=== PATIENT | male | born 1940 | race Caucasian/White ===

== ENCOUNTER 2018-05-26 09:49 | Emergency (ER) | payer OTHER, BC ==
--- NOTE | 2018-05-26 10:48 | RAD REPORT ---
EXAM DESCRIPTION: CT - CTHCSPWOC - 05/26/2018 10:35 am CLINICAL HISTORY: Trauma, head and neck injury. PAIN COMPARISON: No comparisons TECHNIQUE: Axial 5 mm thick images of the head were obtained. Axial 2 mm thick images of the cervical spine were obtained with sagittal and coronal reconstruction images generated and reviewed. All CT scans are performed using dose optimization technique as appropriate and may include automated exposure control or mA/KV adjustment according to patient size. FINDINGS: CT HEAD WITHOUT CONTRAST: No acute hemorrhage, hydrocephalus or extra-axial collection is identified.Moderate generalized brain atrophy is present with moderate periventricular and deep white matter chronic microvascular ischemi c changes.No areas of brain edema or midline shift. The paranasal sinuses and mastoids are clear.The calvarium is intact. CT CERVICAL SPINE WITHOUT CONTRAST: No fracture or subluxation.Mild spondylosis.No prevertebral soft tissues swelling is identified. IMPRESSION: No acute intracranial or cervical spine findings. Mild cervical spondylosis.
--- NOTE | 2018-05-26 11:35 | ER ---
Nurse's Notes [facility] Name: George Brown Age: 77 yrs Sex: Male : 1940 Arrival Date: 05/26/2018 Time: 09:54 Bed 16 Private MD: Jaden Noble Diagnosis: Acute pain due to trauma;Postconcussional syndrome Presentation: 05/26 09:57 Presenting complaint: Patient states: Patient reports that he got dizzy and fell 5 days aj ago and hit the left side of his head on wooden shower door. Denied LOC. Patient reports pain to left side of head has not subsided. Care prior to arrival: None. Mechanism of Injury: No Mechanism of Injury. Trauma event details: Injury occurred in the [facility], Injury occurred: at home. Injury occurred: May 21, 2018 Injury occurred at: 09:59. 09:57 Acuity: LEANN 3 aj 09:57 Method Of Arrival: Ambulatory aj 10:01 Transition of care: patient was not received from another setting of care. Onset of aj symptoms was May 21, 2018. Risk Assessment: Do you want to hurt yourself or someone else? Patient reports no desire to harm self or others. 12:19 Initial Sepsis Screen: Does the patient meet any 2 criteria? No. Patient's initial ph sepsis screen is negative. Does the patient have a suspected source of infection? No. Patient's initial sepsis screen is negative. Trauma Activation: Not Applicable Physician: ED Physician; Name: ; Notified At: ; Arrived At: Physician: General Surgeon; Name: ; Notified At: ; Arrived At: Physician: Radiology; Name: ; Notified At: ; Arrived At: Physician: Respiratory; Name: ; Notified At: ; Arrived At: Physician: Lab; Name: ; Notified At: ; Arrived At: Historical: - Allergies: 10:02 No Known Allergies; aj - Home Meds: 10:02 unknown HTN medication [Active]; aj - PMHx: 10:02 Hypertension; Anemia; aj - PSHx: 10:02 Hernia repair; aj - Immunization history: Last tetanus immunization: - up to date. - Social history:: Smoking status: Patient/guardian denies using tobacco. - Ebola Screening: : Patient negative for fever greater than or equal to 101.5 degrees Fahrenheit, and additional compatible Ebola Virus Disease symptoms Patient denies exposure to infectious person Patient denies travel to an Ebola-affected area in the 21 days before illness onset No symptoms or risks identified at this time. Screenin:57 Abuse screen: Denies threats or abuse. Denies injuries from another. Tuberculosis aj screening: No symptoms or risk factors identified. 10:30 Nutritional screening: No deficits noted. Fall Risk None identified. ph Primary Survey: :57 Breathing/Chest: Respiratory pattern: regular, Respiratory effort: spontaneous, aj unlabored, Breath sounds: clear, bilaterally. Chest inspection: symmetrical rise and fall of the chest. Circulation: Skin color: pink. Disability Alert. 12:00 Reassessment Breathing/Chest Respiratory pattern Regular Disability Alert. ph Assessment: 09:57 General: Appears in no apparent distress. comfortable, Behavior is calm, cooperative, aj appropriate for age. Pain: Complains of pain in left frontal area, left side of forehead, left temporal area, left latter-day, left ear and left zygomatic area. Neuro: Level of Consciousness is awake, alert, obeys commands, Oriented to person, place, time, situation, Appropriate for age Reports dizziness. Respiratory: Airway is patent Respiratory effort is even, unlabored, Respiratory pattern is regular, symmetrical. Derm: Skin is intact, is healthy with good turgor, Skin is pink, warm \T\ dry. normal. 10:30 General: Appears in no apparent distress. comfortable, well groomed, Behavior is calm, ph cooperative, appropriate for age. Pain: Complains of pain in left temporal area. Neuro: Level of Consciousness is awake, alert, obeys commands, Reports dizziness, headache in left frontal area, Denies blurred vision photophobia. Cardiovascular: Capillary refill < 3 seconds in bilateral fingers Patient's skin is warm and dry. Respiratory: Airway is patent Respiratory effort is even, unlabored. GI: Patient currently denies nausea, vomiting. Derm: Skin is intact, is healthy with good turgor, Skin is pink, warm \T\ dry. Musculoskeletal: Circulation, motion, and sensation intact. Range of motion: intact in all extremities. 11:30 Reassessment: Patient appears in no apparent distress at this time. Patient and/or ph family updated on plan of care and expected duration. Pain level reassessed. Patient is alert, oriented x 3, equal unlabored respirations, skin warm/dry/pink. Pt resting quietly, awaiting CT results. Vital Signs: 09:57 BP 152 / 92; Pulse 60; Resp 16; Temp 97.8; Pulse Ox 97% on R/A; Weight 81.65 kg; Height aj 5 ft. 9 in. (175.26 cm); 11:28 BP 141 / 73; Pulse 50; Resp 16; Pulse Ox 96% on R/A; mh5 12:13 BP 141 / 73; Pulse 52; Resp 18; Temp 98.0; Pulse Ox 97% on R/A; ph 09:57 Body Mass Index 26.58 (81.65 kg, 175.26 cm) aj [place] Coma Score: 09:57 Eye Response: spontaneous(4). Verbal Response: oriented(5). Motor Response: obeys aj commands(6). Total: 15. 12:13 Eye Response: spontaneous(4). Verbal Response: oriented(5). Motor Response: obeys ph commands(6). Total: 15. Trauma Score (Adult): 09:57 Eye Response: spontaneous(1); Verbal Response: oriented(1); Motor Response: obeys aj commands(2); Systolic BP: > 89 mm Hg(4); Respiratory Rate: 10 to 29 per min(4); Karan Score: 15; Trauma Score: 12 12:13 Eye Response: spontaneous(1); Verbal Response: oriented(1); Motor Response: obeys ph commands(2); Systolic BP: > 89 mm Hg(4); Respiratory Rate: 10 to 29 per min(4); [place] Score: 15; Trauma Score: 12 ED Course: 09:54 Patient arrived in ED. sb2 09:54 Jaden Noble MD is Private Physician. sb2 09:59 Triage completed. aj 10:02 Arm band placed on left wrist. Patient placed in an exam room. aj 10:05 Genie Butts, JOSELIN is Primary Nurse. ph 10:06 Tunde Fernandez PA is PHCP. jr8 10:06 Nathen Wright MD is Attending Physician. jr8 10:[address] mw3 10:30 Patient maintains SpO2 saturation greater than 95% on room air. ph 10:30 Thermoregulation: warm blanket given to patient. ph 10:35 CT Head C Spine In Process Unspecified. EDMS 11:32 Jaden Noble MD is Referral Physician. jr8 12:15 No provider procedures requiring assistance completed. Patient did not have IV access ph during this emergency room visit. 12:18 Patient has correct armband on for positive identification. Bed in low position. Call ph light in reach. Side rails up X 1. Pulse ox on. NIBP on. Warm blanket given. Administered Medications: 12:05 Drug: [place] (7.5 mg-325 mg) 1 tabs Route: PO; ph 12:13 Follow up: Response: No adverse reaction ph Intake: 12:13 PO: 0ml; Total: 0ml. ph Output: 12:13 Urine: 0ml; Total: 0ml. ph Outcome: 11:34 Discharge ordered by MD. jr8 12:15 Patient left the ED. ph 12:15 Discharged to home ambulatory, with significant other. ph 12:15 Condition: good 12:15 Discharge instructions given to patient, significant other, Instructed on discharge instructions, follow up and referral plans. medication usage, Demonstrated understanding of instructions, follow-up care, medications, Prescriptions given X 1. 12:15 Patient's length of stay was not longer than 2 hours. ph Signatures: Dispatcher [employer] EDWI Doris Palmer RN RN aj Roszak, Josh, PA PA jr8 Genie Butts RN RN ph Martinez, Maria 5 Geni Valiente 2 Miley Mon mw3
--- NOTE | 2018-05-26 11:35 | EDPHYS ---
Physician Documentation [facility] Name: George Brown Age: 77 yrs Sex: Male : 1940 Arrival Date: 05/26/2018 Time: 09:54 Bed 16 Private MD: Jaden Noble ED Physician Nathen Wrihgt HPI: 05/26 10:53 This 77 yrs old Male presents to ER via Ambulatory with complaints of Fall jr8 Injury - 5 DAYS AGO, Dizziness. 10:53 Details of fall: The patient fell from an upright position, while standing. Onset: The jr8 symptoms/episode began/occurred acutely, 5 day(s) ago. Associated injuries: The patient sustained injury to the head, pain. Severity of symptoms: At their worst the symptoms were mild, in the emergency department the symptoms are unchanged. The patient has not experienced similar symptoms in the past. The patient has not recently seen a physician. 10:59 Patient stated that he lost balance from being dizzy the other day. Stated that he fell jr8 and hit left forehead. Had been still having on/off pain since incident. Patient stated that he has f/u with PCP this Saturday for the dizziness to r/o B12 deficiency anemia . Historical: - Allergies: 10:02 No Known Allergies; aj - Home Meds: 10:02 unknown HTN medication [Active]; aj - PMHx: 10:02 Hypertension; Anemia; aj - PSHx: 10:02 Hernia repair; aj - Immunization history: Last tetanus immunization: - up to date. - Social history:: Smoking status: Patient/guardian denies using tobacco. - Ebola Screening: : Patient negative for fever greater than or equal to 101.5 degrees Fahrenheit, and additional compatible Ebola Virus Disease symptoms Patient denies exposure to infectious person Patient denies travel to an Ebola-affected area in the 21 days before illness onset No symptoms or risks identified at this time. ROS: 10:59 Eyes: Negative for injury, pain, redness, and discharge, ENT: Negative for injury, jr8 pain, and discharge, Neck: Negative for injury, pain, and swelling, Cardiovascular: Negative for chest pain, palpitations, and edema, Respiratory: Negative for shortness of breath, cough, wheezing, and pleuritic chest pain, Abdomen/GI: Negative for abdominal pain, nausea, vomiting, diarrhea, and constipation, Back: Negative for injury and pain, MS/Extremity: Negative for injury and deformity, Skin: Negative for injury, rash, and discoloration. 10:59 Neuro: Positive for dizziness, headache, Negative for altered mental status, gait disturbance, hearing loss, loss of consciousness, numbness, seizure activity, speech changes, syncope, near syncope, tingling, tinnitus, tremor, visual changes, weakness. Exam: 10:59 Eyes: Pupils equal round and reactive to light, extra-ocular motions intact. Lids and jr8 lashes normal. Conjunctiva and sclera are non-icteric and not injected. Cornea within normal limits. Periorbital areas with no swelling, redness, or edema. ENT: Nares patent. No nasal discharge, no septal abnormalities noted. Tympanic membranes are normal and external auditory canals are clear. Oropharynx with no redness, swelling, or masses, exudates, or evidence of obstruction, uvula midline. Mucous membranes moist. Neck: Trachea midline, no thyromegaly or masses palpated, and no cervical lymphadenopathy. Supple, full range of motion without nuchal rigidity, or vertebral point tenderness. No Meningismus. Cardiovascular: Regular rate and rhythm with a normal S1 and S2. No gallops, murmurs, or rubs. Normal PMI, no JVD. No pulse deficits. Respiratory: Lungs have equal breath sounds bilaterally, clear to auscultation and percussion. No rales, rhonchi or wheezes noted. No increased work of breathing, no retractions or nasal flaring. Abdomen/GI: Soft, non-tender, with normal bowel sounds. No distension or tympany. No guarding or rebound. No evidence of tenderness throughout. Back: No spinal tenderness. No costovertebral tenderness. Full range of motion. Skin: Warm, dry with normal turgor. Normal color with no rashes, no lesions, and no evidence of cellulitis. MS/ Extremity: Pulses equal, no cyanosis. Neurovascular intact. Full, normal range of motion. Neuro: Awake and alert, GCS 15, oriented to person, place, time, and situation. Cranial nerves II-XII grossly intact. Motor strength 5/5 in all extremities. Sensory grossly intact. Cerebellar exam normal. Normal gait. 10:59 Head/face: Noted is tenderness, that is mild, of the forehead and left confucianism. Vital Signs: 09:57 BP 152 / 92; Pulse 60; Resp 16; Temp 97.8; Pulse Ox 97% on R/A; Weight 81.65 kg; Height aj 5 ft. 9 in. (175.26 cm); 11:28 BP 141 / 73; Pulse 50; Resp 16; Pulse Ox 96% on R/A; mh5 12:13 BP 141 / 73; Pulse 52; Resp 18; Temp 98.0; Pulse Ox 97% on R/A; ph 09:57 Body Mass Index 26.58 (81.65 kg, 175.26 cm) aj Karan Coma Score: 09:57 Eye Response: spontaneous(4). Verbal Response: oriented(5). Motor Response: obeys aj commands(6). Total: 15. 12:13 Eye Response: spontaneous(4). Verbal Response: oriented(5). Motor Response: obeys ph commands(6). Total: 15. Trauma Score (Adult): 09:57 Eye Response: spontaneous(1); Verbal Response: oriented(1); Motor Response: obeys aj commands(2); Systolic BP: > 89 mm Hg(4); Respiratory Rate: 10 to 29 per min(4); Karan Score: 15; Trauma Score: 12 12:13 Eye Response: spontaneous(1); Verbal Response: oriented(1); Motor Response: obeys ph commands(2); Systolic BP: > 89 mm Hg(4); Respiratory Rate: 10 to 29 per min(4); [place] Score: 15; Trauma Score: 12 MDM: 10:06 Patient medically screened. [facility] 11:32 Data reviewed: vital signs, nurses notes, radiologic studies, CT scan, and as a result, 8 I will discharge patient. Data interpreted: Pulse oximetry: on room air is 96 %. Interpretation: normal. Counseling: I had a detailed discussion with the patient and/or guardian regarding: the historical points, exam findings, and any diagnostic results supporting the discharge/admit diagnosis, radiology results, the need for outpatient follow up, a family practitioner, to return to the emergency department if symptoms worsen or persist or if there are any questions or concerns that arise at home. 05/26 10:06 Order name: CT Head C Spine; Complete Time: 10:53 [facility] Administered Medications: 12:05 Drug: [place] (7.5 mg-325 mg) 1 tabs Route: PO; ph 12:13 Follow up: Response: No adverse reaction ph Disposition: 16:20 Co-signature as Attending Physician, Nathen Wright MD I agree with the assessment and [facility] plan of care. Disposition: 05/26/18 11:34 Discharged to Home. Impression: Acute pain due to trauma, Postconcussional syndrome. - Condition is Stable. - Discharge Instructions: Post-Concussion Syndrome. - Prescriptions for Tramadol 50 mg Oral Tablet - take 1 tablet by ORAL route every 8 hours as needed; 12 tablet. - Medication Reconciliation Form, Thank You Letter, Antibiotic Education, Prescription Opioid Use form. - Follow up: Jaden Noble MD; When: 1 - 2 days; Reason: Recheck today's complaints, Continuance of care, Re-evaluation by your physician. - Problem is new. - Symptoms have improved. Signatures: Dispatcher [employer] Doris Godwin, RN RN Nathen Hagan MD MD cha Roszak, Josh, PA PA jr8 Genie Butts RN RN ph Corrections: (The following items were deleted from the chart) 12:15 11:34 05/26/2018 11:34 Discharged to Home. Impression: Acute pain due to trauma; ph Postconcussional syndrome. Condition is Stable. Forms are Medication Reconciliation Form, Thank You Letter, Antibiotic Education, Prescription Opioid Use. Follow up: Jaden Noble; When: 1 - 2 days; Reason: Recheck today's complaints, Continuance of care, Re-evaluation by your physician. Problem is new. Symptoms have improved. jr8
[2018-05-26] MEDS ORDERED: HYDROCODONE/APAP 7.5/325 MG TAB ONE (11:48)
== END 2018-05-26 12:15 | disposition home or self-care (01) ==
LOC: ER 09:49
DX: F07.81 Postconcussional syndrome (principal); G89.11 Acute pain due to trauma; I10 Essential (primary) hypertension; W18.39XA Other fall on same level, initial encounter; Y93.89 Activity, other specified; Y92.9 Unspecified place or not applicable
CPT/HCPCS: 70450; 72125; 99285

== ENCOUNTER 2018-05-30 12:50 | Emergency (ER) | payer OTHER, BC ==
[2018-05-30] MEDS ORDERED: METOCLOPRAMIDE 10 MG/2mL INJ ONE ×2 (13:47→18:02)
--- NOTE | 2018-05-30 14:03 | RAD REPORT ---
EXAM DESCRIPTION: RAD - Chest Single View - 05/30/2018 1:55 pm CLINICAL HISTORY: nausea Fall, chest pain COMPARISON: No comparisons FINDINGS: Portable technique limits examination quality. The lungs are grossly clear. The heart is normal in size. No displaced fractures. IMPRESSION: No acute intrathoracic process suspected.
[2018-05-30 14:07] LABS: Absolute Lymphocytes (CBC) 1.7 K/uL (0.7-4.9); Absolute Monocytes 0.8 K/uL (0.1-1.3); Absolute Neutrophil 5.4 K/uL (1.8-8.0); Basophils % 1.1 % (0-1.3); Eosinophils % 1.3 % (0-4.4); Hematocrit 35.1 % (39.6-49.0); Lymphocytes % 20.9 % (15.3-44.8); MCH 32.9 pg (27.0-35.0); MCV 98.1 fL (80-100); MPV 8.2 fL (7.6-11.3); Monocytes % 9.6 % (3.3-12.3); RBC Red Blood Cell Count 3.57 M/uL (4.33-5.43)
[2018-05-30 14:15] LABS: Protime INR 1.13
[2018-05-30 14:29] LABS: Albumin 4.3 g/dL (3.4-5.0); Bilirubin Direct 0.2 mg/dL (0-0.2); CKMB Creatine Kinase MB 2.4 ng/mL (0.3-3.6); Magnesium 2.3 mg/dL (1.8-2.4); Potassium 4.1 mmol/L (3.5-5.1); Protein, Total 7.7 g/dL (6.4-8.2); Thyroid Stimulating Hormone 1.33 uIU/mL (0.36-3.74)
[2018-05-30] MEDS ORDERED: MECLIZINE HCL 12.5 MG TAB ONE (14:46)
[2018-05-30] MEDS ORDERED: FENTANYL CITR 100 MCG/2 ML ONE (16:09)
--- NOTE | 2018-05-30 17:25 | EKG ---
Test Date: 2018-05-30 Test Time: 13:17:47 Aircraft Machinist: NEIL MEASUREMENT RESULTS: Intervals: Rate: 58 [place]: 162 QRSD: 78 QT: 416 QTc: 408 Anderson: P: 42 [place]: 162 QRS: -1 T: 18 INTERPRETIVE STATEMENTS: Sinus bradycardia Otherwise normal ECG No previous ECG available for comparison Electronically Signed On 05-30-18 17:24:26 CDT by Carlo Mejia
--- NOTE | 2018-05-30 17:25 | RAD REPORT ---
EXAM DESCRIPTION: MRI - Brain Wo Cont - 05/30/2018 5:10 pm CLINICAL HISTORY: Headache and dizziness status post head injury 6 days ago COMPARISON: May 26, 2018 CT TECHNIQUE: Axial, sagittal, and coronal magnetic resonance images of the brain were obtained. Contra st was not requested FINDINGS: Mild to moderate abnormal signal within periventricular, deep and subcortical white matter is present. Diffusion-weighted/ADC mapping does not reveal evidence of acute infarction. The ventricles are normal caliber. An extra-axial fluid collection is not present The sinuses and mastoids are clear. IMPRESSION: Mild to moderate abnormal signal within periventricular, deep and subcortical white [place]olo er likely representing ischemic changes secondary to small vessel disease No acute intracranial abnormality is noted
--- NOTE | 2018-05-30 17:40 | ER ---
Nurse's Notes [facility] Name: George Brown Age: 77 yrs Sex: Male : 1940 Arrival Date: 05/30/2018 Time: 12:53 Bed 14 Private MD: Jaden Noble Diagnosis: Postconcussional syndrome Presentation: 05/30 13:02 Presenting complaint: Patient states: Was seen here on Saturday for a fall d/t dizziness, sg left sided injury to arm and hip and leg, Today dizzyness has worsened, took two dramamine OTC tablets this AM no change in condition, pt reports Left eye is blood shot and looks worse, pt reports pt took one tramadol as prescribed and symptoms worsened, was seen by for dizziness and changed medication to Mobic, no change in condition, pt denies N/V/D, headache at this time. Transition of care: patient was not received from another setting of care. 13:02 Method Of Arrival: Ambulatory sg 13:02 Acuity: LEANN 3 sg 13:26 Onset of symptoms was May 27, 2018. Risk Assessment: Do you want to hurt yourself or kr2 someone else? Patient reports no desire to harm self or others. Initial Sepsis Screen: Does the patient meet any 2 criteria? No. Patient's initial sepsis screen is negative. Does the patient have a suspected source of infection? No. Patient's initial sepsis screen is negative. Care prior to arrival: None. Historical: - Allergies: 13:05 No Known Allergies; sg - Home Meds: 13:05 irbesartan 75 mg oral tab 1 tab once daily [Active]; sg 13:57 Dramamine 50 mg oral tab 1 tab every 4-6 hours [Active]; kr2 - PMHx: 13:05 Anemia; Hypertension; sg - PSHx: 13:05 Hernia repair; sg - Immunization history:: Adult Immunizations unknown. - Social history:: Smoking status: Patient/guardian denies using tobacco. - Ebola Screening: : No symptoms or risks identified at this time. Screenin:26 Abuse screen: Denies threats or abuse. Denies injuries from another. Nutritional kr2 screening: No deficits noted. Tuberculosis screening: No symptoms or risk factors identified. Fall Risk Fall in past 12 months (25 points). Assessment: 13:05 General: Appears in no apparent distress. uncomfortable, well groomed, well developed, kr2 well nourished, Behavior is calm, cooperative, appropriate for age. Pain: Complains of pain in left side of head and face Pain does not radiate. Pain currently is 7 out of 10 on a pain scale. Quality of pain is described as aching, Is continuous, Alleviated by nothing. Aggravated by light Noted to be wearing dark sunglasses. Neuro: Level of Consciousness is awake, alert, obeys commands, Oriented to person, place, time, situation, Appropriate for age Shop Service Technician are equal bilaterally Moves all extremities. Speech is normal, Facial symmetry appears normal, Pupils are PERRLA, Intact. Neuro: Reports dizziness, he has had problems with dizziness for years and borderline anemia. "My daughter was just diagnosed with pernicious anemia and I have always been borderline anemic. I have had balance and dizziness problems and been seeing doctors for it but no one has been able to figure this out. I was here earlier this week because of the fall I had and have had a headache ever since.". Cardiovascular: Capillary refill < 3 seconds in bilateral fingers Patient's skin is warm and dry. Respiratory: Airway is patent Respiratory effort is even, unlabored, Respiratory pattern is regular, symmetrical. GI: Abdomen is flat, non-distended, Stools are reported to be normal. : Denies burning with urination, inability to void. EENT: Nares are clear bilaterally Oral mucosa is moist. Reports sensitivity to light. Derm: Skin is intact, is healthy with good turgor, Skin is pink, warm \\T\\ dry. Musculoskeletal: Circulation, motion, and sensation intact. Range of motion: intact in all extremities. 14:00 Reassessment: Patient appears in no apparent distress at this time. Patient and/or kr2 family updated on plan of care and expected duration. Pain level reassessed. Patient is alert, oriented x 3, equal unlabored respirations, skin warm/dry/pink. Patient states symptoms have improved. 15:00 Reassessment: Patient appears in no apparent distress at this time. Patient and/or kr2 family updated on plan of care and expected duration. Pain level reassessed. Patient is alert, oriented x 3, equal unlabored respirations, skin warm/dry/pink. 16:00 Reassessment: Patient appears in no apparent distress at this time. Patient and/or kr2 family updated on plan of care and expected duration. Pain level reassessed. Patient is alert, oriented x 3, equal unlabored respirations, skin warm/dry/pink. Patient states feeling better. 17:02 Reassessment: Patient appears in no apparent distress at this time. Patient and/or kr2 family updated on plan of care and expected duration. Pain level reassessed. Patient is alert, oriented x 3, equal unlabored respirations, skin warm/dry/pink. Patient states feeling better. 17:28 Reassessment: Patient appears in no apparent distress at this time. Patient and/or kr2 family updated on plan of care and expected duration. Pain level reassessed. Patient is alert, oriented x 3, equal unlabored respirations, skin warm/dry/pink. Patient states feeling better. Patient states symptoms have improved. Vital Signs: 13:05 BP 157 / 88; Pulse 62; Resp 18; Pulse Ox 98% on R/A; Pain 10/10; sg 14:04 BP 157 / 90; Pulse 67; Resp 17; Pulse Ox 98% on R/A; mh5 15:19 BP 163 / 85; Pulse 55; Resp 18; Pulse Ox 97% on R/A; mh5 17:28 BP 152 / 99; Pulse 69; Resp 17; Temp 98; Pulse Ox 95% ; kr2 18:00 BP 164 / 80; Pulse 70; Resp 16; Pulse Ox 97% on R/A; kr2 ED Course: 12:53 Patient arrived in ED. sb2 12:54 Jaden Noble MD is Private Physician. sb2 12:58 Natalie Pandey FNP-C is [facility]. snw 12:58 Andrew Guerra MD is Attending Physician. snw 13:04 Triage completed. sg 13:04 Arm band placed on. sg 13:09 Sita Jara, JOSELIN is Primary Nurse. kr2 13:28 Patient has correct armband on for positive identification. Bed in low position. Call kr2 light in reach. Side rails up X 1. Adult w/ patient. Pulse ox on. NIBP on. Door closed. Warm blanket given. Head of bed elevated. 13:34 EKG done, by missile tracking technician. reviewed by Natalie Katherin CONFERENCE CONCIERGE-C. sm3 13:35 Inserted saline lock: 20 gauge in left antecubital area, using aseptic technique. Blood kr2 collected. 13:53 X-ray completed. Portable x-ray completed in exam room. jr1 13:55 XRAY Chest (1 view) In Process Unspecified. EDMS 16:36 MRI - Brain Wo Cont In Process Unspecified. EDMS 17:38 Jaden Noble MD is Referral Physician. snw 17:38 Quique Ballesteros MD is Referral Physician. snw 18:21 No provider procedures requiring assistance completed. IV discontinued, intact, kr2 bleeding controlled, No redness/swelling at site. Pressure dressing applied. Administered Medications: 13:54 Drug: Reglan 10 mg Route: IM; Site: right deltoid; kr2 14:30 Follow up: Response: No adverse reaction; Nausea is decreased kr2 14:49 Drug: Antivert 50 mg Route: PO; em 16:05 Follow up: Response: No adverse reaction kr2 16:14 Drug: fentaNYL (PF) 25 mcg Route: IVP; Site: left antecubital; kr2 16:30 Follow up: Response: No adverse reaction; Pain is decreased kr2 18:09 Drug: Aspirin 81 mg Route: PO; kr2 18:20 Follow up: Response: Medication administered at discharge. kr2 18:10 Drug: Reglan 10 mg Route: IM; Site: left deltoid; kr2 18:23 Follow up: Response: No adverse reaction kr2 Outcome: 17:40 Discharge ordered by MD. snw 18:22 Discharged to home via wheelchair, with family. kr2 18:22 Condition: improved 18:22 Discharge instructions given to patient, family, Instructed on discharge instructions, follow up and referral plans. medication usage, Demonstrated understanding of instructions, follow-up care, medications, Prescriptions given X 2. 18:27 Patient left the ED. kr2 Signatures: Dispatcher [employer] EDMS Troy Kimball, RN RN Natalie Lynn FNP-C CONFERENCE CONCIERGE-Mimi Covarrubias jr1 Paolo Monroe, BEHAVIOR THERAPIST BEHAVIOR THERAPIST Samantha Joshi 5 Sita Jara RN RN kr2 Geni Valiente 2 Rita Pierson sm3 Corrections: (The following items were deleted from the chart) 18:21 17:28 BP 152 / 99; Pulse 69bpm; Resp 17bpm; Pulse Ox 95%; kr2 kr2
--- NOTE | 2018-05-30 17:40 | EDPHYS ---
Physician Documentation [facility] Name: George Brown Age: 77 yrs Sex: Male : 1940 Arrival Date: 05/30/2018 Time: 12:53 Bed 14 Private MD: Jaden Noble ED Physician Andrew Guerra HPI: 05/30 13:44 This 77 yrs old Male presents to ER via Ambulatory with complaints of snw Dizziness, Weakness, Headache. 13:44 The patient presents with dizziness, generalized weakness, lightheadedness. Onset: The snw symptoms/episode began/occurred suddenly, last week, and became persistent. Context: occurred while the patient was walking to bathroom to urinate, fell forward past the toilet into the Shower one week ago. Seen in ED Saturday05/26/18, took one tramadol, severe nausea. Saw Dr. Noble 05/28/18, took one meloxicam, severe nausea. Associated signs and symptoms: Pertinent positives: head injury. Severity of symptoms: At their worst the symptoms were moderate. Patient's baseline: Neuro: alert and fully oriented, Motor: no deficits, Ambulation: walks without assistance, Speech: normal. The patient has experienced similar episodes in the past, chronically. as noted. Historical: - Allergies: 13:05 No Known Allergies; sg - Home Meds: 13:05 irbesartan 75 mg oral tab 1 tab once daily [Active]; sg 13:57 Dramamine 50 mg oral tab 1 tab every 4-6 hours [Active]; kr2 - PMHx: 13:05 Anemia; Hypertension; sg - PSHx: 13:05 Hernia repair; sg - Immunization history:: Adult Immunizations unknown. - Social history:: Smoking status: Patient/guardian denies using tobacco. - Ebola Screening: : No symptoms or risks identified at this time. ROS: 13:41 Eyes: Negative for injury, pain, redness, and discharge, ENT: Negative for injury, snw pain, and discharge, Neck: Negative for injury, pain, and swelling, Cardiovascular: Negative for chest pain, palpitations, and edema, Respiratory: Negative for shortness of breath, cough, wheezing, and pleuritic chest pain, Abdomen/GI: Negative for abdominal pain, vomiting, diarrhea, and constipation, +nausea Back: Negative for injury and pain, : Negative for injury, bleeding, discharge, and swelling, MS/Extremity: Negative for injury and deformity, Skin: Negative for injury, rash, and discoloration. 13:41 Constitutional: Positive for fatigue, malaise. 13:41 Neuro: Positive for dizziness, headache, weakness. Exam: 13:37 Constitutional: This is a well developed, well nourished patient who is awake, alert, snw and in no acute distress. Head/Face: Normocephalic, atraumatic. Eyes: Pupils equal round and reactive to light, extra-ocular motions intact. Lids and lashes normal. Conjunctiva and sclera are non-icteric and not injected. Cornea within normal limits. Periorbital areas with no swelling, redness, or edema. ENT: Nares patent. No nasal discharge, no septal abnormalities noted. Tympanic membranes are normal and external auditory canals are clear. Oropharynx with no redness, swelling, or masses, exudates, or evidence of obstruction, uvula midline. Mucous membranes moist. Neck: Trachea midline, no thyromegaly or masses palpated, and no cervical lymphadenopathy. Supple, full range of motion without nuchal rigidity, or vertebral point tenderness. No Meningismus. Chest/axilla: Normal chest wall appearance and motion. Nontender with no deformity. No lesions are appreciated. Cardiovascular: Regular rate and rhythm with a normal S1 and S2. No gallops, murmurs, or rubs. Normal PMI, no JVD. No pulse deficits. Respiratory: Lungs have equal breath sounds bilaterally, clear to auscultation and percussion. No rales, rhonchi or wheezes noted. No increased work of breathing, no retractions or nasal flaring. Abdomen/GI: Soft, non-tender, with normal bowel sounds. No distension or tympany. No guarding or rebound. No evidence of tenderness throughout. Back: No spinal tenderness. No costovertebral tenderness. Full range of motion. Skin: Warm, dry with normal turgor. Normal color with no rashes, no lesions, and no evidence of cellulitis. MS/ Extremity: Pulses equal, no cyanosis. Neurovascular intact. Full, normal range of motion. Neuro: Awake and alert, GCS 15, oriented to person, place, time, and situation. Cranial nerves II-XII grossly intact. Motor strength 5/5 in all extremities. Sensory grossly intact. Cerebellar exam normal. Normal gait. 13:37 Psych: Behavior/mood is cooperative, Affect is animated, Oriented to person, place, time, Judgement / Insight is normal. Memory is normal. Delusions/hallucinations are not present. Vital Signs: 13:05 BP 157 / 88; Pulse 62; Resp 18; Pulse Ox 98% on R/A; Pain 10/10; sg 14:04 BP 157 / 90; Pulse 67; Resp 17; Pulse Ox 98% on R/A; mh5 15:19 BP 163 / 85; Pulse 55; Resp 18; Pulse Ox 97% on R/A; mh5 17:28 BP 152 / 99; Pulse 69; Resp 17; Temp 98; Pulse Ox 95% ; kr2 18:00 BP 164 / 80; Pulse 70; Resp 16; Pulse Ox 97% on R/A; kr2 MDM: 12:58 Patient medically screened. snw 17:42 Data reviewed: vital signs, nurses notes. Data interpreted: Pulse oximetry: on room air snw is 95 %. Interpretation: acceptable. Counseling: I had a detailed discussion with the patient and/or guardian regarding: the historical points, exam findings, and any diagnostic results supporting the discharge/admit diagnosis, the presence of at least one elevated blood pressure reading (>120/80) during this emergency department visit, lab results, radiology results, the need for outpatient follow up, to return to the emergency department if symptoms worsen or persist or if there are any questions or concerns that arise at home. Special discussion: Based on the history and exam findings, there is no indication for further emergent testing or inpatient evaluation. I discussed with the patient/guardian the need to see the neurologist for further evaluation of the symptoms. I discussed with the patient/guardian the need to see the primary care provider for further evaluation of the symptoms. 05/30 13:10 Order name: Basic Metabolic Panel; Complete Time: 14:29 snw 05/30 13:10 Order name: CBC with Diff; Complete Time: 14:29 snw 05/30 13:10 Order name: Ckmb; Complete Time: 14:29 snw 05/30 13:10 Order name: CPK; Complete Time: 14:29 snw 05/30 13:10 Order name: LFT's; Complete Time: 14:29 snw 05/30 13:10 Order name: Magnesium; Complete Time: 14:29 snw 05/30 13:10 Order name: NT PRO-BNP; Complete Time: 14:29 w 05/30 13:10 Order name: PT-INR; Complete Time: 14:29 05/30 13:10 Order name: Ptt, Activated; Complete Time: 14:29 w 05/30 13:10 Order name: TS; Complete Time: 14:36 snw 05/30 13:10 Order name: TSH; Complete Time: 14:29 w 05/30 13:10 Order name: B12; Complete Time: 14:29 w 05/30 13:48 Order name: Sed Rate; Complete Time: 14:29 05/30 14:47 Order name: ABO/RH no charge; Complete Time: 14:48 EDMS 05/30 13:10 Order name: XRAY Chest (1 view); Complete Time: 14:07 w 05/30 13:10 Order name: EKG; Complete Time: 13:11 w 05/30 13:10 Order name: Cardiac monitoring; Complete Time: 13:48 w 05/30 13:10 Order name: EKG - Nurse/Tech; Complete Time: 14:53 w 05/30 13:10 Order name: IV Saline Lock; Complete Time: 13:47 05/30 13:10 Order name: Labs collected and sent; Complete Time: 13:47 05/30 13:10 Order name: O2 Per Protocol; Complete Time: 13:47 w 05/30 13:10 Order name: O2 Sat Monitoring; Complete Time: 13:48 w 05/30 15:32 Order name: MRI - Brain Wo Cont; Complete Time: 17:36 snw Administered Medications: 13:54 Drug: Reglan 10 mg Route: IM; Site: right deltoid; kr2 14:30 Follow up: Response: No adverse reaction; Nausea is decreased kr2 14:49 Drug: Antivert 50 mg Route: PO; em 16:05 Follow up: Response: No adverse reaction kr2 16:14 Drug: fentaNYL (PF) 25 mcg Route: IVP; Site: left antecubital; kr2 16:30 Follow up: Response: No adverse reaction; Pain is decreased kr2 18:09 Drug: Aspirin 81 mg Route: PO; kr2 18:20 Follow up: Response: Medication administered at discharge. kr2 18:10 Drug: Reglan 10 mg Route: IM; Site: left deltoid; kr2 18:23 Follow up: Response: No adverse reaction kr2 Disposition: 18:31 Co-signature as Attending Physician, Andrew Guerra MD. rn Disposition: 05/30/18 17:40 Discharged to Home. Impression: Postconcussional syndrome. - Condition is Stable. - Discharge Instructions: Post-Concussion Syndrome. - Prescriptions for Aggrenox 200- 25 mg Oral Capsule - take 1 capsule by ORAL route every 12 hours in the morning and evening; 20 capsule. promethazine 25 mg Oral Tablet - take 1 tablet by ORAL route every 6 hours As needed; 20 tablet. - Medication Reconciliation Form, Thank You Letter, Antibiotic Education, Prescription Opioid Use form. - Follow up: Jaden Noble MD; When: 2 - 3 days; Reason: Recheck today's complaints, Continuance of care, Re-evaluation by your physician. Follow up: Quique Ballesteros MD; When: 2 - 3 days; Reason: Recheck today's complaints, Continuance of care. Signatures: Dispatcher [employer] Troy Owens RN RN sg Natalie Pandey, SURGICAL FORCEPS FABRICATOR-C SURGICAL FORCEPS FABRICATOR-Csnw Paolo Monroe, SNORKELLING INSTRUCTOR SNORKELLING INSTRUCTOR Andrew Tomlinson MD MD rn Reaves, Karey, RN RN kr2 Corrections: (The following items were deleted from the chart) 18:26 13:10 Urine Dipstick-Ancillary ordered. snw kr2 18:27 17:40 05/30/2018 17:40 Discharged to Home. Impression: Postconcussional syndrome. kr2 Condition is Stable. Forms are Medication Reconciliation Form, Thank You Letter, Antibiotic Education, Prescription Opioid Use. Follow up: Jaden Noble; When: 2 - 3 days; Reason: Recheck today's complaints, Continuance of care, Re-evaluation by your physician. Follow up: Quique Ballesteros; When: 2 - 3 days; Reason: Recheck today's complaints, Continuance of care. snw
[2018-05-30] MEDS ORDERED: ASPIRIN EC 81 MG TAB PO ONE (17:57)
== END 2018-05-30 18:27 | disposition home or self-care (01) ==
LOC: ER 12:50
DX: F07.81 Postconcussional syndrome (principal); W18.30XA Fall on same level, unspecified, initial encounter; Y93.01 Activity, walking, marching and hiking; Y92.002 Bathroom of unspecified non-institutional (private) residence as the place of occurrence of the external cause; I10 Essential (primary) hypertension
CPT/HCPCS: 36415; 70551; 71045; 80048; 80076; 82550; 82553; 82607; 83735; 83880; 84443; 85025; 85610; 85652; 85730; 86850; 86900; 86901; 93005; 96372; 96374; 99284; J2765 ×2; J3010

== ENCOUNTER 2018-06-02 09:25 | Emergency (ER) | payer OTHER, BC ==
[2018-06-02] MEDS ORDERED: DIPHENHYDRAMINE 50 MG/ML VIAL ONE (10:35)
[2018-06-02] MEDS ORDERED: NA CHLORIDE 0.9% 1,000 ML ONE (10:36)
[2018-06-02] MEDS ORDERED: DIAZEPAM 10 MG/2 ML INJ SYRINGE ONE (10:40)
[2018-06-02 10:55] LABS: Absolute Lymphocytes (CBC) 1.3 K/uL (0.7-4.9); Absolute Monocytes 0.8 K/uL (0.1-1.3); Absolute Neutrophil 5.2 K/uL (1.8-8.0); Basophils % 1.3 % (0-1.3); Eosinophils % 0.1 % (0-4.4); Hematocrit 34.9 % (39.6-49.0); Lymphocytes % 17.4 % (15.3-44.8); MCH 33.3 pg (27.0-35.0); MCV 96.8 fL (80-100); MPV 7.8 fL (7.6-11.3); RBC Red Blood Cell Count 3.61 M/uL (4.33-5.43)
[2018-06-02 11:31] LABS: Urine White Blood Cell Casts OK
[2018-06-02 11:32] LABS: Anisocytosis 1+; Blood Morphology Comment NOTED (NOT SEEN); Macrocytosis 1+; Platelet Estimate ADEQ
[2018-06-02] MEDS ORDERED: KETOROLAC 30 MG/ML INJ ONE (11:45)
--- NOTE | 2018-06-02 11:45 | ER ---
Nurse's Notes [facility] Name: George Brown Age: 77 yrs Sex: Male : 1940 Arrival Date: 06/02/2018 Time: 09:29 Bed 23 Private MD: Jaden Noble Diagnosis: Benign paroxysmal vertigo;Zoster [herpes zoster] Presentation: 06/02 09:31 Presenting complaint: Patient states: fell 2 weeks ago and hit L side of head and eyes hj swollen, did not seek medical tx, 2 days after the fall pt, complained of dizziness, headache and severe nauseous, Saturday night last week came to the ED, CT head was negative; followed up with PCP, Rx with Mobic, no response, now headache and nausea is getting worse; worsening headache and swelling triggered today's visit;. Transition of care: patient was not received from another setting of care. Onset of symptoms was June 02, 2018. Risk Assessment: Do you want to hurt yourself or someone else? Patient reports no desire to harm self or others. Initial Sepsis Screen: Does the patient meet any 2 criteria? No. Patient's initial sepsis screen is negative. Does the patient have a suspected source of infection? No. Patient's initial sepsis screen is negative. Care prior to arrival: None. 09:31 Method Of Arrival: Ambulatory 09:31 Acuity: LEANN 3 hj Triage Assessment: 09:37 General: Appears in no apparent distress. uncomfortable, Behavior is calm, cooperative, hj appropriate for age. Pain: Complains of pain in head Pain currently is 9 out of 10 on a pain scale. GI: Reports nausea, vomiting. Historical: - Allergies: 09:37 No Known Allergies; hj - Home Meds: 09:37 Dramamine 50 mg Oral tab 1 tab every 4-6 hours [Active]; irbesartan 75 mg Oral tab 1 hj tab once daily [Active]; - PMHx: 09:37 Anemia; Hypertension; hj - PSHx: 09:37 Hernia repair; hj - Immunization history:: Adult Immunizations up to date. - Social history:: Smoking status: Patient/guardian denies using tobacco, Patient/guardian denies using alcohol. - Ebola Screening: : Patient negative for fever greater than or equal to 101.5 degrees Fahrenheit, and additional compatible Ebola Virus Disease symptoms Patient denies exposure to infectious person Patient denies travel to an Ebola-affected area in the 21 days before illness onset. Screenin:38 Abuse screen: Denies threats or abuse. Denies injuries from another. Nutritional hj screening: No deficits noted. Tuberculosis screening: No symptoms or risk factors identified. Fall Risk Fall in past 12 months (25 points). Assessment: 09:38 GI: Abdomen is. hj 10:15 General: Appears in no apparent distress. uncomfortable, Behavior is calm, cooperative, aj appropriate for age. Pain: Complains of pain in left eye. Neuro: Level of Consciousness is awake, alert, obeys commands, Oriented to person, place, time, situation, Appropriate for age. Respiratory: Airway is patent Respiratory effort is even, unlabored, Respiratory pattern is regular, symmetrical. GI: Abdomen is flat. EENT: Reports pain in left eye. Derm: Skin is intact, is healthy with good turgor, Skin is pink, warm \T\ dry. normal, Rash noted that is red, on nose, left cheek and left eye. Vital Signs: 09:38 BP 141 / 81; Pulse 70; Resp 18; Temp 99.7(O); Pulse Ox 95% on R/A; Weight 83.46 kg; hj Height 5 ft. 9 in. (175.26 cm); Pain 9/10; 10:15 BP 146 / 91; Pulse 62; Resp 19; Pulse Ox 97% on R/A; aj 11:12 BP 146 / 73; Pulse 57; Resp 16; Pulse Ox 97% on R/A; aj 11:48 BP 163 / 75; Pulse 81; Resp 17; Pulse Ox 99% on R/A; aj 09:38 Body Mass Index 27.17 (83.46 kg, 175.26 cm) ED Course: 09:29 Patient arrived in ED. mr 09:29 Jaden Noble MD is Private Physician. mr 09:36 Triage completed. hj 09:38 Arm band placed on left wrist. hj 09:38 Patient has correct armband on for positive identification. Bed in low position. Call light in reach. Side rails up X 1. Adult w/ patient. 10:12 Steve Jaquez MD is Attending Physician. gs 10:15 Doris Palmer RN is Primary Nurse. aj 10:15 No provider procedures requiring assistance completed. aj 10:49 Inserted saline lock: 20 gauge in right antecubital area, using aseptic technique. aj Blood collected. 10:59 EKG done, by processing technologist. reviewed by Steve Jaquez MD. at1 11:44 Jaden Oh MD is Referral Physician. gs 11:45 Quique Ballesteros MD is Referral Physician. gs 11:48 IV discontinued, intact, bleeding controlled, No redness/swelling at site. Pressure aj dressing applied. Administered Medications: 10:48 Drug: NS 0.9% 1000 ml Route: IV; Rate: 1 bolus; Site: right antecubital; aj 10:48 Drug: Valium 2.5 mg Route: IVP; Site: right antecubital; aj 11:47 Follow up: Response: No adverse reaction; Pain is decreased aj 10:48 Drug: Benadryl 12.5 mg Route: IVP; Site: right antecubital; aj 11:47 Follow up: Response: No adverse reaction; Pain is decreased aj Outcome: 11:44 Discharge ordered by MD. gs 11:48 Discharged to home via wheelchair, with family. aj 11:48 Condition: good 11:48 Discharge instructions given to patient, family, Instructed on discharge instructions, follow up and referral plans. medication usage, Demonstrated understanding of instructions, follow-up care, medications, Prescriptions given X 2. 11:49 Patient left the ED. aj Signatures: Doris Palmer, RN Samantha Cobb mr simmonsDoris, chemical waste management technician EKG Tat1 Nikko Shipman RN RN hj Starr, Gregory, MD MD Corrections: (The following items were deleted from the chart) 09:40 09:38 Pulse 70bpm; Resp 18bpm; Pulse Ox 95% RA; Temp 99.7F Oral; 83.46 kg; Height 5 ft. hj 9 in.; BMI: 27.1; Pain 9/10; hj
--- NOTE | 2018-06-02 11:45 | EDPHYS ---
Physician Documentation [facility] Name: George Brown Age: 77 yrs Sex: Male : 1940 Arrival Date: 06/02/2018 Time: 09:29 Bed 23 Private MD: Jaden Noble ED Physician Steve Jaquez Historical: - Allergies: 06/02 09:37 No Known Allergies; hj - Home Meds: 09:37 Dramamine 50 mg Oral tab 1 tab every 4-6 hours [Active]; irbesartan 75 mg Oral tab 1 hj tab once daily [Active]; - PMHx: 09:37 Anemia; Hypertension; hj - PSHx: 09:37 Hernia repair; hj - Immunization history:: Adult Immunizations up to date. - Social history:: Smoking status: Patient/guardian denies using tobacco, Patient/guardian denies using alcohol. - Ebola Screening: : Patient negative for fever greater than or equal to 101.5 degrees Fahrenheit, and additional compatible Ebola Virus Disease symptoms Patient denies exposure to infectious person Patient denies travel to an Ebola-affected area in the 21 days before illness onset. Vital Signs: 09:38 BP 141 / 81; Pulse 70; Resp 18; Temp 99.7(O); Pulse Ox 95% on R/A; Weight 83.46 kg; hj Height 5 ft. 9 in. (175.26 cm); Pain 9/10; 10:15 BP 146 / 91; Pulse 62; Resp 19; Pulse Ox 97% on R/A; aj 11:12 BP 146 / 73; Pulse 57; Resp 16; Pulse Ox 97% on R/A; aj 11:48 BP 163 / 75; Pulse 81; Resp 17; Pulse Ox 99% on R/A; aj 09:38 Body Mass Index 27.17 (83.46 kg, 175.26 cm) MDM: 10:25 Patient medically screened. 06/02 10:31 Order name: CBC with Diff 06/02 10:31 Order name: Basic Metabolic Panel 06/02 10:31 Order name: Urine Microscopic Only 06/02 11:04 Order name: CBC Smear Scan EDMD 06/02 10:44 Order name: EKG; Complete Time: 10:45 06/02 10:44 Order name: EKG - Nurse/Tech; Complete Time: 11:10 Administered Medications: 10:48 Drug: NS 0.9% 1000 ml Route: IV; Rate: 1 bolus; Site: right antecubital; aj 10:48 Drug: Valium 2.5 mg Route: IVP; Site: right antecubital; aj 11:47 Follow up: Response: No adverse reaction; Pain is decreased aj 10:48 Drug: Benadryl 12.5 mg Route: IVP; Site: right antecubital; aj 11:47 Follow up: Response: No adverse reaction; Pain is decreased aj Disposition: 06/02/18 11:44 Discharged to Home. Impression: Benign paroxysmal vertigo, Zoster [herpes zoster]. - Condition is Stable. - Discharge Instructions: Benign Positional Vertigo. - Prescriptions for Benadryl 25 mg Oral Capsule - take 1 capsule by ORAL route every 6 hours As needed; 30 tablet. Valium 5 mg Oral Tablet - take 1 tablet by ORAL route every 12 hours As needed; 15 tablet. - Medication Reconciliation Form, Thank You Letter, Antibiotic Education, Prescription Opioid Use form. - Follow up: Jaden Oh MD; When: Today. Follow up: Quique Ballesteros MD; When: 2 - 3 days; Reason: Re-evaluation by your physician. Signatures: Dispatcher [employer] EDDoris Maldonado RN RN aj Joaquin, Henry, RN RN hj Starr, Gregory, MD MD Corrections: (The following items were deleted from the chart) 11:45 11:44 06/02/2018 11:44 Discharged to Home. Impression: Benign paroxysmal vertigo; gs Zoster [herpes zoster]. Condition is Stable. Forms are Medication Reconciliation Form, Thank You Letter, Antibiotic Education, Prescription Opioid Use. Follow up: Jaden Oh; When: Today. 11:47 10:31 Urine Dipstick-Ancillary ordered. [facility] 11:49 11:45 06/02/2018 11:44 Discharged to Home. Impression: Benign paroxysmal vertigo; aj Zoster [herpes zoster]. Condition is Stable. Discharge Instructions: Benign Positional Vertigo. Prescriptions for Benadryl 25 mg Oral Capsule - take 1 capsule by ORAL route every 6 hours As needed; 30 tablet, Valium 5 mg Oral Tablet - take 1 tablet by ORAL route every 12 hours As needed; 15 tablet. and Forms are Medication Reconciliation Form, Thank You Letter, Antibiotic Education, Prescription Opioid Use. Follow up: Jaden Oh; When: Today. Follow up: Quique Ballesteros; When: 2 - 3 days; Reason: Re-evaluation by your physician. gs
--- NOTE | 2018-06-02 12:55 | EKG ---
Test Date: 2018-06-02 Test Time: 10:55:29 Cna Instructor: TIGRE MEASUREMENT RESULTS: Intervals: Rate: 61 ID: [id number] QRSD: 78 QT: 436 QTc: 438 [place]: P: 55 ID: [id number] QRS: 2 T: 51 INTERPRETIVE STATEMENTS: Normal sinus rhythm Normal ECG Compared to ECG 05/30/2018 13:17:47 Sinus bradycardia no longer present Electronically Signed On 06-02-18 12:54:54 CDT by Carlo Mejia
== END 2018-06-02 11:49 | disposition home or self-care (01) ==
LOC: ER 09:25
DX: H81.10 Benign paroxysmal vertigo, unspecified ear (principal); B02.9 Zoster without complications; I10 Essential (primary) hypertension
CPT/HCPCS: 36415; 80048; 85025; 93005; 96374; 96375; 99284; J3360; J7030

== ENCOUNTER 2019-03-16 10:48 | Emergency (ER) | payer OTHER, BC ==
--- NOTE | 2019-03-16 12:00 | RAD REPORT ---
EXAM DESCRIPTION: RAD - Hand Right 3 View - 03/16/2019 11:52 am CLINICAL HISTORY: r/o fb Pain and swelling COMPARISON: No comparisons FINDINGS: Soft tissue swelling is seen involving the third digit. A small foreign body is suspected along palmar soft tissues of the finger superficial to the middle phalanx.
--- NOTE | 2019-03-16 12:39 | ER ---
Nurse's Notes [facility] Name: George Brown Age: 78 yrs Sex: Male : 1940 Arrival Date: 03/16/2019 Time: 10:50 Bed 11 Private MD: Diagnosis: Puncture wound with foreign body of right middle finger without damage to nail Presentation: 03/16 10:52 Presenting complaint: Patient states: Pt reports he has had a fish spine broke off into ss his R third finger x 3 weeks. Pt states, "I keep trying to get it, but I just can't get deep enough and my doctor says he doesn't have the equipment.". Transition of care: patient was not received from another setting of care. Onset of symptoms is unknown. Risk Assessment: Do you want to hurt yourself or someone else? Patient reports no desire to harm self or others. Initial Sepsis Screen: Does the patient meet any 2 criteria? No. Patient's initial sepsis screen is negative. Does the patient have a suspected source of infection? No. Patient's initial sepsis screen is negative. Care prior to arrival: None. 10:52 Method Of Arrival: Ambulatory ss 10:52 Acuity: LEANN 4 ss Historical: - Allergies: 10:55 No Known Allergies; ss - PMHx: 10:55 Anemia; Hypertension; ss - PSHx: 10:55 Hernia repair; ss - Immunization history:: Adult Immunizations unknown. - Social history:: Smoking status: Patient/guardian denies using tobacco. - Ebola Screening: : Patient denies exposure to infectious person Patient denies travel to an Ebola-affected area in the 21 days before illness onset. Screenin:56 Abuse screen: Denies threats or abuse. Denies injuries from another. Nutritional ss screening: No deficits noted. Tuberculosis screening: Never had TB. Fall Risk None identified. Assessment: 10:56 General: Appears in no apparent distress. comfortable, Behavior is calm, cooperative. ss Pain: Complains of pain in palmar aspect of distal phalanx of right middle finger Pain currently is 0 out of 10 on a pain scale. Quality of pain is described as tender. Neuro: Level of Consciousness is awake, alert, obeys commands. Cardiovascular: Capillary refill < 3 seconds is brisk in bilateral fingers. Respiratory: Airway is patent Respiratory effort is even, unlabored, Respiratory pattern is regular, symmetrical. EENT: Oral mucosa is moist. Derm: Skin is pink, warm \\T\\ dry. normal, small area where skin is raised. Almost wart-like. Musculoskeletal: Circulation, motion, and sensation intact. Range of motion: intact in all extremities, Swelling absent. Vital Signs: 10:55 BP 157 / 73; Pulse 60; Resp 15; Temp 98.0(TE); Pulse Ox 98% on R/A; Weight 81.65 kg; ss Height 5 ft. 9 in. (175.26 cm); Pain 0/10; 10:55 Body Mass Index 26.58 (81.65 kg, 175.26 cm) ss ED Course: 10:50 Patient arrived in ED. as 10:54 Triage completed. ss 10:55 Arm band placed on right wrist. ss 10:56 Lakshmi Jo, RN is Primary Nurse. ss 10:56 Patient has correct armband on for positive identification. Bed in low position. Call ss light in reach. 10:58 [facility] Del [facility]-C [facility]. kb 10:58 Nathen Wright MD is Attending Physician. kb 11:52 X-ray completed. Portable x-ray completed in exam room. Patient tolerated procedure jb2 well. 11:54 Hand Right 3 View XRAY In Process Unspecified. EDMS 12:39 Jose G Hale MD is Referral Physician. kb Administered Medications: No medications were administered Outcome: 12:39 Discharge ordered by . kb 12:51 Patient left the ED. iw Signatures: Dispatcher [employer] EDMS Robyn Del Rosario FNP-C FNP-Zachary Ramirez jb2 Kaylyn Lopez Irene, RN RN Lakshmi Jo, JOSELIN RN ss
--- NOTE | 2019-03-16 12:40 | EDPHYS ---
Physician Documentation [facility] Name: George Brown Age: 78 yrs Sex: Male : 1940 Arrival Date: 03/16/2019 Time: 10:50 Bed 11 Private MD: ED Physician Nathen Wright HPI: 03/16 12:28 This 78 yrs old Male presents to ER via Ambulatory with complaints of Foreign kb Body. 12:28 The patient or guardian reports the patient has a suspected foreign body, right middle kb finger. The reported likely foreign body is fish spine. Onset: The symptoms/episode began/occurred 3 week(s) ago. Current symptoms: foreign body sensation. Treatment Prior to Arrival: the patient took a cathartic. The patient has not experienced similar symptoms in the past. The patient has not recently seen a physician. Historical: - Allergies: 10:55 No Known Allergies; ss - PMHx: 10:55 Anemia; Hypertension; ss - PSHx: 10:55 Hernia repair; ss - Immunization history:: Adult Immunizations unknown. - Social history:: Smoking status: Patient/guardian denies using tobacco. - Ebola Screening: : Patient denies exposure to infectious person Patient denies travel to an Ebola-affected area in the 21 days before illness onset. ROS: 12:34 Constitutional: Negative for fever, chills, and weight loss, Cardiovascular: Negative kb for chest pain, palpitations, and edema, Respiratory: Negative for shortness of breath, cough, wheezing, and pleuritic chest pain, Abdomen/GI: Negative for abdominal pain, nausea, vomiting, diarrhea, and constipation, Skin: Negative for injury, rash, and discoloration, Neuro: Negative for headache, weakness, numbness, tingling, and seizure. 12:34 MS/extremity: Positive for of the palmar aspect of distal phalanx of right middle finger, foreign body sensation. Exam: 12:34 Constitutional: This is a well developed, well nourished patient who is awake, alert, kb and in no acute distress. Head/Face: Normocephalic, atraumatic. Chest/axilla: Normal chest wall appearance and motion. Nontender with no deformity. No lesions are appreciated. Cardiovascular: Regular rate and rhythm with a normal S1 and S2. No gallops, murmurs, or rubs. Normal PMI, no JVD. No pulse deficits. Respiratory: Lungs have equal breath sounds bilaterally, clear to auscultation and percussion. No rales, rhonchi or wheezes noted. No increased work of breathing, no retractions or nasal flaring. Abdomen/GI: Soft, non-tender, with normal bowel sounds. No distension or tympany. No guarding or rebound. No evidence of tenderness throughout. MS/ Extremity: Pulses equal, no cyanosis. Neurovascular intact. Full, normal range of motion. Neuro: Awake and alert, GCS 15, oriented to person, place, time, and situation. Cranial nerves II-XII grossly intact. Motor strength 5/5 in all extremities. Sensory grossly intact. Cerebellar exam normal. Normal gait. 12:34 Skin: calloused skin noted where pt reports there is a FB. No redness, swelling, warmth or other indications of infection. Vital Signs: 10:55 BP 157 / 73; Pulse 60; Resp 15; Temp 98.0(TE); Pulse Ox 98% on R/A; Weight 81.65 kg; ss Height 5 ft. 9 in. (175.26 cm); Pain 0/10; 10:55 Body Mass Index 26.58 (81.65 kg, 175.26 cm) ss MDM: 11:01 Patient medically screened. kb 12:34 Data reviewed: vital signs, nurses notes. Data interpreted: Pulse oximetry: on room air kb is 98 %. Interpretation: normal. Counseling: I had a detailed discussion with the patient and/or guardian regarding: the historical points, exam findings, and any diagnostic results supporting the discharge/admit diagnosis, radiology results, the need for outpatient follow up, a hand specialist, to return to the emergency department if symptoms worsen or persist or if there are any questions or concerns that arise at home. 03/16 10:59 Order name: Hand Right 3 View XRAY; Complete Time: 12:01 kb Administered Medications: No medications were administered Disposition: 15:09 Co-signature as Attending Physician, Nathen Wright MD I agree with the assessment and ana plan of care. Disposition: 03/16/19 12:39 Discharged to Home. Impression: Puncture wound with foreign body of right middle finger without damage to nail. - Condition is Stable. - Discharge Instructions: Foreign Body. - Medication Reconciliation Form, Thank You Letter, Antibiotic Education, Prescription Opioid Use form. - Follow up: Emergency Department; When: As needed; Reason: Worsening of condition. Follow up: Jose G Hale MD; When: 1 - 2 days; Reason: Recheck today's complaints. Signatures: Dispatcher [employer] EDCT Miguel Ángel Robyn, GUM SCORING MACHINE OPERATOR-C GUM SCORING MACHINE OPERATOR-Ckb Nathen Wright MD MD cha Williams, Irene, RN RN iw Lakshmi Jo RN RN ss Corrections: (The following items were deleted from the chart) 11:04 10:59 Hand Left 3 View+RAD.RAD.BRZ ordered. EDCT EDMS 12:36 12:34 Skin: calloused skin noted where pt reports there is a FB. kb kb 12:51 12:39 03/16/2019 12:39 Discharged to Home. Impression: Puncture wound with foreign body iw of right middle finger without damage to nail. Condition is Stable. Forms are Medication Reconciliation Form, Thank You Letter, Antibiotic Education, Prescription Opioid Use. Follow up: Emergency Department; When: As needed; Reason: Worsening of condition. Follow up: Jose G Hale; When: 1 - 2 days; Reason: Recheck today's complaints. kb
== END 2019-03-16 12:51 | disposition home or self-care (01) ==
LOC: ER 10:48
DX: S61.242A Puncture wound with foreign body of right middle finger without damage to nail, initial encounter (principal)
CPT/HCPCS: 99282

== ENCOUNTER 2019-03-19 07:21 | Day surgery (SDC) | payer OTHER, BC ==
[2019-03-18 15:28] LABS: Urine Appearance CLEAR; Urine Bilirubin NEGATIVE (NEG); Urine Blood NEGATIVE (NEG); Urine Color YELLOW; Urine Glucose NEGATIVE (NEG); Urine Protein NEGATIVE (NEG); Urine Specific Gravity 1.015 (1.005-1.030); Urine Urobilinogen 0.2 mg/dL (0.2-1.0)
[2019-03-18 15:28] LABS: Absolute Lymphocytes (CBC) 2.1 K/uL (0.7-4.9); Absolute Monocytes 0.5 K/uL (0.1-1.3); Absolute Neutrophil 2.8 K/uL (1.8-8.0); Basophils % 2.4 % (0-1.3); Eosinophils % 3.6 % (0-4.4); Monocytes % 8.4 % (3.3-12.3); RBC Red Blood Cell Count 3.42 M/uL (4.33-5.43)
[2019-03-18 15:32] LABS: Urine Microscopic Reflex NO UMIC
[2019-03-18 16:02] LABS: Anisocytosis 1+; Blood Morphology Comment NOTED (NOT SEEN); Macrocytosis 1+; Platelet Estimate INCR; Urine White Blood Cell Casts OK
[2019-03-18 16:03] LABS: Basophilic Stippling 1+
--- NOTE | 2019-03-18 16:03 | RAD REPORT ---
EXAM DESCRIPTION: Lamont Shukla (2 Views)03/18/2019 3:19 pm CLINICAL HISTORY: Preop COMPARISON: May 2018 FINDINGS: The lungs appear clear of acute infiltrate. The heart is normal size IMPRESSION: No acute abnormalities displayed
--- NOTE | 2019-03-18 17:50 | EKG ---
Test Date: 2019-03-18 Test Time: 15:05:03 Tram Driver: TIGRE MEASUREMENT RESULTS: Intervals: Rate: 65 MT: 166 QRSD: 86 QT: 398 QTc: 413 [place]: P: 56 MT: 166 QRS: 3 T: 31 INTERPRETIVE STATEMENTS: Normal sinus rhythm Normal ECG Compared to ECG 06/02/2018 10:55:29 No significant changes Electronically Signed On 03-18-19 17:48:54 CDT by Carlo Mejia
[2019-03-19] MEDS ORDERED: Ringers Lactate 1,000 ML IV ONE (08:10)
[2019-03-19] MEDS ORDERED: FENTANYL CITR 100 MCG/2 ML ONE (09:01)
[2019-03-19] MEDS ORDERED: LIDOCAINE 2% MPF 5 ML VIAL ONE (09:01)
[2019-03-19] MEDS ORDERED: PROPOFOL 200 MG/20 ML VIAL IV ONE (09:01)
[2019-03-19] MEDS ORDERED: MIDAZOLAM HCL 2 MG/2 ML INJ ONE (09:01)
[2019-03-19] MEDS ORDERED: ONDANSETRON 4 MG/2 ML VIAL ONE (09:16)
[2019-03-19] MEDS ORDERED: BUPIVACAINE 0.5% PF 10 ML VIAL ONE (09:27)
--- NOTE | 2019-03-22 11:25 | OP ---
Surgeon: Jose G Hale MD Preoperative Diagnosis: Foreign body, right middle finger. Postoperative Diagnosis: Foreign body, right middle finger. Procedure Performed: Removal of foreign body, debridement of skin. Anesthesia: General. Procedure In Detail: After satisfactory induction of general anesthesia, the right hand was prepped with Betadine scrub, Betadine paint, dry sterile drapes applied in usual manner. The arm was elevate d and exsanguinated with an Esmarch. Tourniquet was inflated to 250 mmHg. Hand placed on a [place] table. The puncture site for the foreign body was slightly proximal to the DIP flexion crease on the radial side. A V-shaped incision was made. Dissection was carried down until the foreign body was readily identified, removed with a hemostat. Surrounding soft tissue was excised with a scalpel. To urniquet released. Prior to closure, the wound was jet lavaged, irrigated with 3 L of dilute Betadin e solution and wound was closed with 5-0 Prolene simple sutures in horizontal mattress. Dressings co nsisted with Xeroform, 2-inch Courtney. The patient tolerated the procedure well [facility] JITENDRA/ZANDER Voice ID: [id number] Report ID: [id number]
== END 2019-03-19 10:55 | disposition home or self-care (01) ==
LOC: OR 07:21
PROVIDERS: ATTEND Specialist
PROC: 0JCJ3ZZ Extirpation of Matter from Right Hand Subcutaneous Tissue and Fascia, Percutaneous Approach (ICD-10-PCS; principal; 2019-03-19 09:00)
DX: S61.242A Puncture wound with foreign body of right middle finger without damage to nail, initial encounter (principal); X58.XXXA Exposure to other specified factors, initial encounter
CPT/HCPCS: 10120; 93005; 85025; 36415; 88300; 81003; 71046; J2704; J2250; J3010; J2405

== ENCOUNTER 2020-08-15 16:29 | Observation (INO) | payer OTHER, BC ==
[2020-08-15] MEDS ORDERED: NA CHLORIDE 0.9% 1,000 ML ONE (17:23)
[2020-08-15 17:34] LABS: Absolute Lymphocytes (CBC) 2.3 K/uL (0.7-4.9); Basophils % 0.2 % (0-1.3); Lymphocytes % 38.2 % (15.3-44.8); MPV 8.4 fL (7.6-11.3); RBC Red Blood Cell Count 2.96 M/uL (4.33-5.43)
[2020-08-15 17:52] LABS: ALT/SGPT 36 U/L (12-78); AST/SGOT 24 U/L (15-37); Albumin 3.9 g/dL (3.4-5.0); Alkaline Phosphatase 45 U/L (45-117); BUN Blood Urea Nitrogen 25 mg/dL (7-18); Bicarbonate 28 mmol/L (21-32); Bilirubin Direct 0.2 mg/dL (0-0.2); Bilirubin Total 0.7 mg/dL (0.2-1.0); Glucose Level 132 mg/dL (74-106); Lipase 51 U/L (73-393); Magnesium 2.3 mg/dL (1.8-2.4); NT PRO-BNP 70 pg/mL (<450); Protein, Total 7.6 g/dL (6.4-8.2); Sodium Level 139 mmol/L (136-145); Troponin (Emerg Dept Use Only) < 0.02 ng/mL (0.0-0.045)
--- NOTE | 2020-08-15 18:06 | EDPHYS ---
Physician Documentation [facility] Name: George Brown Age: 79 yrs Sex: Male : 1940 Arrival Date: 08/15/2020 Time: 16:30 Bed 20 Private MD: ED Physician Nathen Wright HPI: 08/15 17:57 This 79 yrs old Male presents to ER via Wheelchair with complaints of Chest ana Pain. 17:57 The patient or guardian reports chest pain that is located primarily in the substernal ana area. Onset: just prior to arrival, this morning. The pain does not radiate. Associated signs and symptoms: The patient has no apparent associated signs or symptoms. The chest pain is described as a heaviness, a pressure. Modifying factors: The symptoms are alleviated by nothing. the symptoms are aggravated by nothing. Severity of pain: At its worst the pain was moderate in the emergency department the pain has resolved has improved. The patient has experienced similar episodes in the past, a few times. Historical: - Allergies: 16:56 No Known Allergies; ca1 - PMHx: 16:56 Anemia; Hypertension; ca1 - PSHx: 16:56 Hernia repair; ca1 - Immunization history:: Adult Immunizations up to date. - Social history:: Smoking status: Patient denies any tobacco usage or history of. - Family history:: not pertinent. ROS: 17:57 Constitutional: Negative for fever, chills, and weight loss, Eyes: Negative for injury, ana pain, redness, and discharge, ENT: Negative for injury, pain, and discharge, Neck: Negative for injury, pain, and swelling, Respiratory: Negative for shortness of breath, cough, wheezing, and pleuritic chest pain, Abdomen/GI: Negative for abdominal pain, nausea, vomiting, diarrhea, and constipation, Back: Negative for injury and pain, : Negative for injury, bleeding, discharge, and swelling, MS/Extremity: Negative for injury and deformity, Skin: Negative for injury, rash, and discoloration, Neuro: Negative for headache, weakness, numbness, tingling, and seizure. 17:57 Cardiovascular: Positive for chest pain, of the chest. Exam: 17:57 Constitutional: This is a well developed, well nourished patient who is awake, alert, ana and in no acute distress. Head/Face: Normocephalic, atraumatic. Eyes: Pupils equal round and reactive to light, extra-ocular motions intact. Lids and lashes normal. Conjunctiva and sclera are non-icteric and not injected. Cornea within normal limits. Periorbital areas with no swelling, redness, or edema. ENT: Nares patent. No nasal discharge, no septal abnormalities noted. Tympanic membranes are normal and external auditory canals are clear. Oropharynx with no redness, swelling, or masses, exudates, or evidence of obstruction, uvula midline. Mucous membranes moist. Neck: Trachea midline, no thyromegaly or masses palpated, and no cervical lymphadenopathy. Supple, full range of motion without nuchal rigidity, or vertebral point tenderness. No Meningismus. Chest/axilla: Normal chest wall appearance and motion. Nontender with no deformity. No lesions are appreciated. Cardiovascular: Regular rate and rhythm with a normal S1 and S2. No gallops, murmurs, or rubs. Normal PMI, no JVD. No pulse deficits. Respiratory: Lungs have equal breath sounds bilaterally, clear to auscultation and percussion. No rales, rhonchi or wheezes noted. No increased work of breathing, no retractions or nasal flaring. Abdomen/GI: Soft, non-tender, with normal bowel sounds. No distension or tympany. No guarding or rebound. No evidence of tenderness throughout. Back: No spinal tenderness. No costovertebral tenderness. Full range of motion. Male : Normal genitalia with no discharge or lesions. Skin: Warm, dry with normal turgor. Normal color with no rashes, no lesions, and no evidence of cellulitis. 18:07 ECG was reviewed by the Attending Physician. ana Vital Signs: 16:51 BP 133 / 75; Pulse 57; Resp 15 S; Temp 98.3(O); Pulse Ox 98% on R/A; Weight 80.74 kg ca1 (R); Height 5 ft. 9 in. (175.26 cm) (R); Pain 5/10; 18:20 BP 141 / 78; Pulse 55; Resp 18 S; Pulse Ox 98% on R/A; aa5 20:35 BP 133 / 75; Pulse 57; Resp 16; Temp 98; Pulse Ox 98% on R/A; rv 16:51 Body Mass Index 26.29 (80.74 kg, 175.26 cm) ca1 MDM: 17:08 Patient medically screened. ana 17:59 Differential diagnosis: abnormal EKG, coronary artery disease chest wall pain, ana Cholelithiasis pancreatitis, stable angina, unstable angina. HEART Score: History: Moderately Suspicious (1), ECG: Non specific repolarization disturbance / LBTB / PM (1). The patient was given aspirin in the Emergency Department. The patient's deep vein thrombosis risk score was calculated as follows: Total Score: 0. This patient was found to be at low risk for a deep vein thrombosis by using the Well's assessment criteria. The patient's pulmonary embolism risk score was calculated as follows: Total Score: 0-2 points. This patient was found to be at low risk for a pulmonary embolism by using the Well's assessment criteria. ALYSSIA Risk Score: 1 - patient's age is greater or equal to 65 years, TOTAL SCORE = 1. Data reviewed: vital signs, nurses notes, lab test result(s), EKG, radiologic studies, plain films. Data interpreted: cardiac monitor: rate is 57 beats/min, rhythm is regular, Pulse oximetry: on room air is 98 %. Test interpretation: by ED physician or midlevel provider: ECG, plain radiologic studies. 18:09 Counseling: I had a detailed discussion with the patient and/or guardian regarding: the [facility] historical points, exam findings, and any diagnostic results supporting the discharge/admit diagnosis, lab results, radiology results, the need for further work-up and treatment in the hospital. ED course: admit to [facility]. 08/15 17:07 Order name: Basic Metabolic Panel; Complete Time: 17:54 [facility] 08/15 17:07 Order name: CBC with Diff; Complete Time: 19:35 [facility] 08/15 17:07 Order name: LFT's; Complete Time: 17:54 [facility] 08/15 17:07 Order name: Magnesium; Complete Time: 17:54 [facility] 08/15 17:07 Order name: NT PRO-BNP; Complete Time: 17:54 [facility] 08/15 17:07 Order name: Troponin (emerg Dept Use Only); Complete Time: 17:54 [facility] 08/15 17:07 Order name: XRAY Chest (1 view); Complete Time: 18:40 [facility] 08/15 17:07 Order name: Lipase; Complete Time: 17:54 [facility] 08/15 17:41 Order name: CBC Smear Scan; Complete Time: 19:35 EDMS 08/15 19:10 Order name: COVID-19 08/15 17:07 Order name: EKG; Complete Time: 17:08 [facility] 08/15 17:07 Order name: Cardiac monitoring; Complete Time: 17:11 [facility] 08/15 17:07 Order name: EKG - Nurse/Tech; Complete Time: 17:11 [facility] 08/15 17:07 Order name: IV Saline Lock; Complete Time: 17:24 [facility] 08/15 17:07 Order name: Labs collected and sent; Complete Time: 17:24 [facility] 08/15 17:07 Order name: O2 Per Protocol; Complete Time: 17:24 [facility] 08/15 17:07 Order name: O2 Sat Monitoring; Complete Time: 17:24 ana EC:07 Rate is 53 beats/min. Rhythm is regular. QRS [place] is Normal. NH interval is normal. QRS ana interval is normal. QT interval is normal. No Q waves. T waves are Normal. No ST changes noted. Clinical impression: NSR w/ Non-specific ST/T Changes and No evidence of ischemia. Interpreted by me. Reviewed by me. Administered Medications: 17:20 Drug: NS 0.9% 1000 ml Route: IV; Rate: 125 ml/hr; Site: right antecubital; em 20:37 Follow up: IV Status: Infusion continued upon admission rv 18:20 Drug: Aspirin Chewable Tablet 324 mg Route: PO; aa5 20:37 Follow up: Response: No adverse reaction rv 18:20 Drug: Lovenox 1 mg/kg Route: Sub-Q; Site: right lower abdomen; aa5 20:37 Follow up: Response: No adverse reaction rv 18:20 Drug: Lipitor 10 mg Route: PO; aa5 20:37 Follow up: Response: No adverse reaction rv 18:57 Not Given (Patient Refused): Pepcid 20 mg IVP once aa5 Disposition: 08/15/20 18:06 Hospitalization ordered by Jerson Guerra for Observation. Preliminary diagnosis are Angina pectoris, Chest pain, unspecified, Essential (primary) hypertension, Unspecified kidney failure - insufficency, Anemia, unspecified. - Bed requested for Telemetry/MedSurg (observation). - Status is Observation. rv - Condition is Stable. - Problem is new. - Symptoms have improved. Signatures: Dispatcher [employer] Gaviota Farah, RN Nathen Jara MD MD cha Munoz, Edgar, RN RN em Mary Cervantes RN RN aa5 Abnera, Jia, [employer]-C [employer]-Cla1 Ever Santos RN JOSELIN rv Radha Archer RN RN ca1 Corrections: (The following items were deleted from the chart) 18:09 18:06 Hospitalization Ordered by oMntana Fernandes DO for Observation. Preliminary la1 diagnosis is Angina pectoris; Chest pain, unspecified; Essential (primary) hypertension. Bed requested for Telemetry/MedSurg (observation). Status is Observation. Condition is Stable. Problem is new. Symptoms have improved. ana 18:32 18:09 08/15/2020 18:06 Hospitalization Ordered by Jerson Guerra MD for Observation. ana Preliminary diagnosis is Angina pectoris; Chest pain, unspecified; Essential (primary) hypertension. Bed requested for Telemetry/MedSurg (observation). Status is Observation. Condition is Stable. Problem is new. Symptoms have improved. la1 19:29 18:32 08/15/2020 18:06 Hospitalization Ordered by Jerson Guerra MD for Observation. dw Preliminary diagnosis is Angina pectoris; Chest pain, unspecified; Essential (primary) hypertension; Unspecified kidney failure - insufficency. Bed requested for Telemetry/MedSurg (observation). Status is Observation. Condition is Stable. Problem is new. Symptoms have improved. ana 19:36 19:29 08/15/2020 18:06 Hospitalization Ordered by Jerson Guerra MD for Observation. ana Preliminary diagnosis is Angina pectoris; Chest pain, unspecified; Essential (primary) hypertension; Unspecified kidney failure - insufficency. Bed requested for Telemetry/MedSurg (observation). Status is Observation. Condition is Stable. Problem is new. Symptoms have improved. dw 20:37 19:36 08/15/2020 18:06 Hospitalization Ordered by Jerson Guerra MD for Observation. rv Preliminary diagnosis is Angina pectoris; Chest pain, unspecified; Essential (primary) hypertension; Unspecified kidney failure - insufficency; Anemia, unspecified. Bed requested for Telemetry/MedSurg (observation). Status is Observation. Condition is Stable. Problem is new. Symptoms have improved. ana
--- NOTE | 2020-08-15 18:06 | ER ---
Nurse's Notes [facility] Name: George Brown Age: 79 yrs Sex: Male : 1940 Arrival Date: 08/15/2020 Time: 16:30 Bed 20 Private MD: Diagnosis: Angina pectoris;Chest pain, unspecified;Essential (primary) hypertension;Unspecified kidney failure-insufficency;Anemia, unspecified Presentation: 08/15 16:51 Chief complaint: Patient states: Chest pain, off and on, for couple weeks, seen the ca1 doctor in [place], did an EKG, they said it was okay but was instructed to come to the ER if CP persists. This episode of CP started 30 minutes. CP midsternal, pain scale 5/10, sharp, radiating the back on the shoulder blade. Reports SOB with chest pain, dizziness with the CP. Denies nausea. Denies cough. Denies injury to the chest. Coronavirus screen: Client denies travel out of the [place] in the last 14 days. At this time, the client does not indicate any symptoms associated with coronavirus-19. Ebola Screen: Patient negative for fever greater than or equal to 101.5 degrees Fahrenheit, and additional compatible Ebola Virus Disease symptoms Patient denies exposure to infectious person. Patient denies travel to an Ebola-affected area in the 21 days before illness onset. No symptoms or risks identified at this time. Initial Sepsis Screen: Does the patient meet any 2 criteria? No. Patient's initial sepsis screen is negative. Does the patient have a suspected source of infection? No. Patient's initial sepsis screen is negative. Risk Assessment: Do you want to hurt yourself or someone else? Patient reports no desire to harm self or others. Onset of symptoms was August 15, 2020. 16:51 Method Of Arrival: Wheelchair ca1 16:51 Acuity: LEANN 3 ca1 Historical: - Allergies: 16:56 No Known Allergies; ca1 - PMHx: 16:56 Anemia; Hypertension; ca1 - PSHx: 16:56 Hernia repair; ca1 - Immunization history:: Adult Immunizations up to date. - Social history:: Smoking status: Patient denies any tobacco usage or history of. - Family history:: not pertinent. Screenin:15 Abuse screen: Denies threats or abuse. Nutritional screening: No deficits noted. em Tuberculosis screening: No symptoms or risk factors identified. Fall Risk None identified. Assessment: 17:15 General: Appears in no apparent distress. comfortable, Behavior is calm, cooperative, em appropriate for age, Denies fever. Pain: Complains of pain in mid-sternal area Pain radiates to anterior aspect of right shoulder Pain currently is 5 out of 10 on a pain scale. Pain began 1 hour ago. Neuro: Level of Consciousness is awake, alert, obeys commands, Oriented to person, place, time, situation, Appropriate for age. Cardiovascular: Capillary refill < 3 seconds Patient's skin is warm and dry. Rhythm is sinus bradycardia. Respiratory: Airway is patent Respiratory effort is even, unlabored, Respiratory pattern is regular, symmetrical, Denies shortness of breath. GI: Patient currently denies nausea, vomiting. Derm: Skin is intact, is thin, Skin is pink, warm \T\ dry. Musculoskeletal: Capillary refill < 3 seconds, Range of motion: intact in all extremities. 18:20 Reassessment: Patient is alert, oriented x 3, equal unlabored respirations, skin aa5 warm/dry/pink. Patient states feeling better. Pt sitting up in bed. Awaiting room assignment, pt notified of wait time. . 18:20 Cardiovascular: Rhythm is sinus bradycardia. aa5 Vital Signs: 16:51 BP 133 / 75; Pulse 57; Resp 15 S; Temp 98.3(O); Pulse Ox 98% on R/A; Weight 80.74 kg ca1 (R); Height 5 ft. 9 in. (175.26 cm) (R); Pain 5/10; 18:20 BP 141 / 78; Pulse 55; Resp 18 S; Pulse Ox 98% on R/A; aa5 20:35 BP 133 / 75; Pulse 57; Resp 16; Temp 98; Pulse Ox 98% on R/A; rv 16:51 Body Mass Index 26.29 (80.74 kg, 175.26 cm) ca1 ED Course: 16:30 Patient arrived in ED. ag5 16:55 Triage completed. ca1 16:56 Arm band placed on right wrist. ca1 16:59 Mary Cervantes, JOSELIN is Primary Nurse. aa5 17:08 Nathen Wright MD is Attending Physician. ana 17:15 Patient has correct armband on for positive identification. Placed in gown. Bed in low em position. Call light in reach. cafeteria monitor on. Pulse ox on. NIBP on. 17:20 Initial lab(s) drawn, by me, sent to lab. Inserted saline lock: 20 gauge in right em antecubital area, using aseptic technique. Blood collected. Patient maintains SpO2 saturation greater than 95% on room air. 18:03 [place] Fernandes DO is Hospitalizing Provider. [facility] 18:09 Jerson Guerra MD is Hospitalizing Provider. la1 18:15 XRAY Chest (1 view) In Process Unspecified. EDMS 19:03 Report given to JOSELIN Curtis. aa5 20:36 No provider procedures requiring assistance completed. IV is patent, with fluids rv infusing freely, Patient admitted, IV remains in place. Administered Medications: 17:20 Drug: NS 0.9% 1000 ml Route: IV; Rate: 125 ml/hr; Site: right antecubital; em 20:37 Follow up: IV Status: Infusion continued upon admission rv 18:20 Drug: Aspirin Chewable Tablet 324 mg Route: PO; aa5 20:37 Follow up: Response: No adverse reaction rv 18:20 Drug: Lovenox 1 mg/kg Route: Sub-Q; Site: right lower abdomen; aa5 20:37 Follow up: Response: No adverse reaction rv 18:20 Drug: Lipitor 10 mg Route: PO; aa5 20:37 Follow up: Response: No adverse reaction rv 18:57 Not Given (Patient Refused): Pepcid 20 mg IVP once aa5 Outcome: 18:06 Decision to Hospitalize by Provider. [facility] 20:36 Admitted to Tele accompanied by tech, via wheelchair, room 407, Other SBAR Report rv called to TONI OLIVERA 20:36 Condition: good 20:36 Instructed on the need for admit. 20:37 Patient left the ED. rv Signatures: Dispatcher [employer] EDMS Nathen Wright MD MD cha Munoz, Edgar, RN RN em Mary Cervantes RN RN aa5 Jai Infante, APPLICATIONS SALES REPRESENTATIVE-C APPLICATIONS SALES REPRESENTATIVE-Cla1 Ever Santos RN RN rv Radha Archer RN RN [facility] Vitaliy Dobbins ag5 Corrections: (The following items were deleted from the chart) 19:07 19:03 Report given to JOSELIN Deluca aa5 aa5
--- NOTE | 2020-08-15 18:22 | RAD REPORT ---
EXAM DESCRIPTION: RAD - Chest Single View - 08/15/2020 6:15 pm CLINICAL HISTORY: CHEST PAIN Chest pain. COMPARISON: Chest Pa And Lat (2 Views) dated 03/18/2019; Chest Single View dated 05/30/2018 FINDINGS: Portable technique limits examination quality. The lungs are grossly clear. The heart is upper limit normal in size. No displaced fractures. IMPRESSION: No acute intrathoracic process suspected.
[2020-08-15] MEDS ORDERED: ATORVASTATIN 20 MG TAB ONE (18:32)
[2020-08-15] MEDS ORDERED: ENOXAPARIN 80 MG/0.8 ML SQ ONE (18:32)
[2020-08-15] MEDS ORDERED: ASPIRIN 81 MG CHEWABLE TABLET ONE (18:32)
[2020-08-15] MEDS ORDERED: FAMOTIDINE 20 MG/2 ML VIAL IV ONE (18:32)
[2020-08-15 18:57] LABS: Platelet Estimate INCR; White Blood Cell Scan OK (OK)
[2020-08-15 18:58] LABS: Anisocytosis 1+; Blood Morphology Comment NOTED (NOT SEEN); Hypochromasia 1+; Macrocytosis 1+
--- NOTE | 2020-08-15 18:58 | P.HP ---
Certification for Inpatient Patient admitted to: Inpatient With expected LOS: >2 Midnights Patient will require the following post-hospital care: None Practitioner: I am a practitioner with admitting privileges, knowledge of patient current condition, hospital course, and medical plan of care. Services: Services provided to patient in accordance with Admission requirements found in Title 42 Section 412.3 of the Code of Federal Regulations <AbnersteveJai - Last Filed: 08/15/20 18:51> Patient History Date of Service: 08/15/20 Primary Care Provider: Dr. Russo in [facility] Reason for admission: Chest pain History of Present Illness: 79-year-old male with history of pernicious anemia presents emergency department for chest pain. Patient reports that he has been having chest pain intermittently that started approximately 2 weeks ago. Patient reports episodes that last approximately 20-30 min and occur both at rest and with exertion. Patient describes pain as a tightness with radiation to the right shoulder blade and right jaw area. Patient has had a number of episodes since 2 weeks ago. Patient with family history of heart disease including father and all siblings. Patient has not had previous cardiac workup. Patient was seen by primary care doctor last week and had EKG which was within normal limits. Patient does have a scheduled appointment for 1st time visit with new radio equipment repairer on . Patient was evaluated in the emergency department and found to have EKG with nonspecific findings, normal troponin level, normal chest x-ray. ED provider wishes to admit patient for observation for chest pain. When I saw the patient in the emergency department he was awake, alert, oriented x4. Patient denies chest pain at this time. Vital signs stable. Patient be admitted for observation. Home medications list reviewed: Yes - Past Medical/Surgical History Diabetic: No -: Pernicious anemia -: Hernia repair -: Right shoulder surgery Psychosocial/ Personal History: Patient lives at home with his and the oldest son - Family History Father -: Heart disease Brother -: Heart disease Sister -: Heart disease - Social History Smoking Status: Never smoker Alcohol use: No CD- Drugs: No Caffeine use: Yes Place of Residence: Home <Jai Infante - Last Filed: 08/15/20 18:51> Date of Service: 08/16/20 <Jerson Guerra - Last Filed: 08/16/20 18:22> Allergies No Known Allergies Allergy (Verified 03/18/19 15:13) Home Medications: Aspirin [Aspirin EC 81 MG] 1 tab PO DAILY 30 Days #30 tablet. 08/16/20 Atorvastatin Calcium [Lipitor*] 1 tab PO BEDTIME 30 Days #30 tab 08/16/20 Review of Systems 10-point ROS is otherwise unremarkable General: Malaise Respiratory: Shortness of Breath Cardiovascular: Chest Pain <Jai Infante - Last Filed: 08/15/20 18:51> Physical Examination - Physical Exam General: Alert, In no apparent distress HEENT: Atraumatic, PERRLA, Mucous membr. moist/pink Neck: Supple, 2+ carotid pulse no bruit, No LAD Respiratory: Clear to auscultation bilaterally, Normal air movement Cardiovascular: Regular rate/rhythm, Normal S1 S2 Gastrointestinal: Normal bowel sounds, No tenderness Musculoskeletal: No tenderness Integumentary: No rashes Neurological: Normal speech, Normal strength at 5/5 x4 extr, Normal tone, Normal affect - Studies Laboratory Data (last 24 hrs) 08/15/20 17:20: WBC 5.9, Hgb 10.1 L, Hct 30.0 L, Plt Count 416 H 08/15/20 17:20: Sodium 139, Potassium 4.0, BUN 25 H, Creatinine 1.31 H, Glucose 132 H, Magnesium 2.3, Total Bilirubin 0.7, AST 24, ALT 36, Alkaline Phosphatase 45, Lipase 51 L <Jai Infante - Last Filed: 08/15/20 18:51> Assessment and Plan - Plan Assessment Chest pain rule out ACS Renal insufficiency Macrocytic anemia Plan Chest pain rule out ACS: Cardiology consult in place, patient remain on t elemetry throughout this hospitalization. Patient did receive aspirin, statin, Lovenox in the emergency department. Will trend troponins. Aspirin, beta- adria in place. Patient with multiple risk factors for ACS. DVT prophylaxis Lovenox 40 mg subcutaneous once daily. Will keep patient NPO after midnight in case cardiology prefers intervention. Renal insufficiency: The patient's last BMP showed creatinine 1.1. Today creatinine is 1.3. Continue gentle hydration throughout the evening. Repeat labs in the morning. Macrocytic anemia: Patient reports history of pernicious anemia which all this family also has. Patient does take B12 shots twice weekly with primary care. Hemoglobin stable this time will continue to monitor. Discharge Plan: Home Plan to discharge in: 24 Hours - Advance Directives Does patient have a Living Will: No Does patient have a Durable POA for Healthcare: No - Code Status/Comfort Care Code Status Assessed: Yes Critical Care: No Time Spent Managing Pts Care (In Minutes): 55 <Jai Infante - Last Filed: 08/15/20 18:51> Physician Review Additional Text: Plan of care discussed with Jai Infante, and I agree with the management plan as noted above. <Jerson Guerra - Last Filed: 08/16/20 18:22>
[2020-08-15] MEDS ORDERED: ATORVASTATIN 10 MG TAB PO ONE (19:00)
[2020-08-15] MEDS ORDERED: ONDANSETRON 4 MG/2 ML VIAL IV PRN (20:58)
[2020-08-15] MEDS ORDERED: ACETAMINOPHEN 500 MG TAB PO PRN (20:58)
[2020-08-15 21:04] VITALS: BMI 25.5
[2020-08-15] MEDS: NA CHLORIDE 0.9% 1,000 ML IV SCH (21:37)
[2020-08-16 04:56] LABS: Absolute Lymphocytes (CBC) 2.2 K/uL (0.7-4.9); Basophils % 2.6 % (0-1.3); Hematocrit 28.8 % (39.6-49.0); Lymphocytes % 43.1 % (15.3-44.8); MPV 8.3 fL (7.6-11.3); RBC Red Blood Cell Count 2.87 M/uL (4.33-5.43)
[2020-08-16 05:29] LABS: Magnesium 2.3 mg/dL (1.8-2.4); Potassium 4.1 mmol/L (3.5-5.1); Thyroid Stimulating Hormone 1.79 uIU/mL (0.360-3.740)
[2020-08-16] MEDS ORDERED: METOPROLOL TAR 25 MG TAB PO SCH (06:00)
[2020-08-16] MEDS ORDERED: REGADENOSON 0.4 MG/5 ML SYR IV ONE (08:21)
[2020-08-16] MEDS ORDERED: ENOXAPARIN 40 MG/0.4 ML SQ SCH (09:00)
[2020-08-16] MEDS ORDERED: ASPIRIN EC 81 MG TAB PO SCH (09:00)
[2020-08-16] MEDS: NA CHLORIDE 0.9% 1,000 ML IV SCH (10:18)
--- NOTE | 2020-08-16 10:28 | RAD REPORT ---
EXAM DESCRIPTION: NM - Rest Stress Cardiac Imaging - 08/16/2020 10:12 am CLINICAL HISTORY: Chest pain. COMPARISON: None. TECHNIQUE: The patient was administered approximately 10mCi of Tc 99m Sestamibi prior to resting SPE CT imaging of the heart. The patient was then administered approximately 30 mCi of Tc 99m Sestamibi f ollowing exercise or pharmacologic stress. Multiplanar SPECT images were reviewed. FINDINGS: Rest and stress images demonstrate a a small area of diminished radiotracer uptake involvi ng the inferior left ventricular myocardium. The remainder of the radiotracer activity appears normal The left ventricular ejection fraction 69% IMPRESSION: Small apparent fixed perfusion defect involving the inferior left ventricular myocardium may be secondary to attenuation from the diaphragm or infarction. There is no evidence of stress-induced ischemia
[2020-08-16 16:10] VITALS: O2SAT 97
--- NOTE | 2020-08-16 16:29 | P.DS ---
Admission Date: 08/15/20 Discharge Date: 08/16/20 Primary Care Provider: Dr. Russo in [facility] Disposition: ROUTINE DISCHARGE Discharge Condition: GOOD Reason for Admission: Chest pain Consultations: Cardiology - Dr. Miller Procedures: NM - Rest Stress Cardiac Imaging - 08/16/2020 10:12 am FINDINGS: Rest and stress images demonstrate a a small area of diminished radiotracer uptake involving the inferior left ventricular myocardium. The remainder of the radiotracer activity appears normal The left ventricular ejection fraction 69% IMPRESSION: Small apparent fixed perfusion defect involving the inferior left ventricular myocardium may be secondary to attenuation from the diaphragm or infarction. There is no evidence of stress-induced ischemia Brief History of Present Illness: 79-year-old male with history of pernicious anemia presents emergency department for chest pain. Patient reports that he has been having chest pain intermittently that started approximately 2 weeks ago. Patient reports episodes that last approximately 20-30 min and occur both at rest and with exertion. Patient describes pain as a tightness with radiation to the right shoulder blade and right jaw area. Patient has had a number of episodes since 2 weeks ago. Patient with family history of heart disease including father and all siblings. Patient has not had previous cardiac workup. Patient was seen by primary care doctor last week and had EKG which was within normal limits. Patient does have a scheduled appointment for 1st time visit with new simulation educator on . Patient was evaluated in the emergency department and found to have EKG with nonspecific findings, normal troponin level, normal chest x-ray. ED provider wishes to admit patient for observation for chest pain. Hospital Course: The patient was admitted for further evaluation. His troponins were trended in all remained negative (< 0.02) x3. He did not have any recurrence of this chest pain during hospitalization. Cardiology was consulted, patient underwent a nuclear stress test which was negative for any stress induced ischemia. The hieu kamara was discharged home, with recommendation of 81 mg aspirin and 10 mg atorvastatin daily (given his significant family history, ASCVD risk score). Patient stated he would think about taking the medications. He stated he has an appointment later this week in [place] with the simulation educator. I advised him to further discuss these medications at that appointment. Vital Signs/Physical Exam: Temp Pulse Resp BP Pulse Ox 98.5 F 50 16 148/68 H 98 08/16/20 12:00 08/16/20 12:00 08/16/20 12:00 08/16/20 12:00 08/16/20 12:00 General: Alert, In no apparent distress HEENT: PERRLA, EOMI, Sclerae nonicteric Neck: Supple, JVD not distended Respiratory: Clear to auscultation bilaterally, Normal air movement Cardiovascular: No edema, Regular rate/rhythm, Normal S1 S2 Gastrointestinal: Normal bowel sounds, Soft and benign, Non-distended, No tenderness Musculoskeletal: No erythema, No tenderness Integumentary: No rashes Neurological: Normal speech, Normal affect Laboratory Data at Discharge: WBC 5.1 K/uL (4.3-10.9) 08/16/20 04:35 Hgb 10.0 g/dL (13.6-17.9) L 08/16/20 04:35 Hct 28.8 % (39.6-49.0) L 08/16/20 04:35 Plt Count 382 K/uL (152-406) 08/16/20 04:35 Sodium 143 mmol/L (136-145) 08/16/20 04:35 Potassium 4.1 mmol/L (3.5-5.1) 08/16/20 04:35 BUN 22 mg/dL (7-18) H 08/16/20 04:35 Creatinine 1.18 mg/dL (0.55-1.3) 08/16/20 04:35 Glucose 92 mg/dL (74-106) 08/16/20 04:35 Magnesium 2.3 mg/dL (1.8-2.4) 08/16/20 04:35 Total Bilirubin 0.7 mg/dL (0.2-1.0) 08/15/20 17:20 AST 24 U/L (15-37) 08/15/20 17:20 ALT 36 U/L (12-78) 08/15/20 17:20 Alkaline Phosphatase 45 U/L (45-117) 08/15/20 17:20 Troponin I < 0.02 ng/mL (0.0-0.045) 08/16/20 01:26 Triglycerides 87 mg/dL (<150) 08/16/20 04:35 Cholesterol 141 mg/dL (<200) 08/16/20 04:35 HDL Cholesterol 48 mg/dL (40-60) 08/16/20 04:35 Cholesterol/HDL Ratio 2.94 08/16/20 04:35 Lipase 51 U/L (73-393) L 08/15/20 17:20 Home Medications: Aspirin [Aspirin EC 81 MG] 1 tab PO DAILY 30 Days #30 tablet. 08/16/20 Atorvastatin Calcium [Lipitor*] 1 tab PO BEDTIME 30 Days #30 tab 08/16/20 New Medications: Aspirin [Aspirin EC 81 MG] 1 tab PO DAILY 30 Days #30 tablet. Atorvastatin Calcium [Lipitor*] 1 tab PO BEDTIME 30 Days #30 tab Patient Discharge Instructions: Follow up with Cardiology (either as previously scheduled, or with Dr. Miller in 2 weeks) Diet: AHA Activity: Ad juan Followup: Mao Miller MD [ACTIVE - CAN ADMIT] - 1-2 Weeks Time spent managing pt's care (in minutes): 35
[2020-08-16 17:17] VITALS: BP 165/72; TEMP 98.6
[2020-08-16] MEDS ORDERED: ATORVASTATIN 10 MG TAB PO SCH (21:00)
--- NOTE | 2020-08-17 02:16 | CON ---
Date of Consultation: 08/16/2020 The patient was admitted to Dr. Guerra's service on 08/15/2020. I saw the patient on 08/16/2020. Reason For Consultation: Chest pain. History Of Present Illness: Mr. Brown is a 79-year-old white male without any significant past car diac history. He has a history of anemia and hypertension. Has had a hernia repair in the past. He has a strong family history of heart disease in his brothers and sisters in their 50s. He himself, however, is 79 and he denied any diabetes, hypertension, or dyslipidemia at this point. Denied any p revious coronary artery disease. The patient came in with left-sided to mid-epigastric chest pain th at did not radiate. He denied any nausea, vomiting, diaphoresis, PND, orthopnea, pedal edema, palpit ation, or syncope. Denied any fever or chills or cough. Symptoms were described as a pressure. He mostly came in because he was concerned with a strong family history. He had a basically unremarkabl e EKG. His chest x-ray and all his blood work were within normal limit. Past Medical History: Stated earlier. Review of Systems: Negative. Social History: Negative. Family History: Positive. Medications: His medications at home included aspirin and Lipitor. Physical Examination: Vital Signs: Stable. He was slightly hypertensive at 159/68, sinus rhythm, afebrile, respiratory ra te is 16, O2 saturation 98% on room air. HEENT: Negative. Neck: Supple. No bruit. Chest: Clear. Cardiac Exam: Revealed a regular rhythm and rate. No murmurs, gallops, or rubs. Abdomen: Benign. Extremities: Revealed no clubbing, cyanosis, or edema. Diagnostic Data: Showed hemoglobin of 10. His creatinine was 1.18. His troponin was negative. His lipid profile was excellent with an HDL of 48 and his ratio was 2.94. His LDL was 76. He has sligh tly low lipase of 51. Impression And Plan: Atypical chest pain in a patient with hypertension, dyslipidemia, family histor y of heart disease. His pain was not exertional, no associated symptoms, did not radiate. Normal el ectrocardiogram, normal lab work, normal chest x-ray. I suggested a stress test today before his dep arture from the hospital. I explained the risks and the benefits of the procedure to him and he agre ed. I will order the stress test today. If it is positive, we will plan a heart catheterization and , if it is negative, he can go home and follow up either with me or with his physicians in [place]. I would continue his aspirin and Lipitor. I would add at least a low-dose beta adria which should help with his blood pressure or even consider putting him on an ARB or SOFIYA inhibitor with hydrochloro thiazide. I will discuss the case further with Dr. Guerra. PRABHJOT/ZANDER Voice ID: [id number] Report ID: [id number]
--- NOTE | 2020-08-17 05:55 | EKG ---
Test Date: 2020-08-15 Test Time: 17:06:52 Timber Skidder: LILLIANA MEASUREMENT RESULTS: Intervals: Rate: 53 VA: 170 QRSD: 80 QT: 456 QTc: 427 Heth: P: 50 VA: 170 QRS: -17 T: 62 INTERPRETIVE STATEMENTS: Sinus bradycardia Nonspecific T wave abnormality Abnormal ECG Compared to ECG 03/18/2019 15:05:03 T-wave abnormality now present Sinus rhythm no longer present Electronically Signed On 08-17-20 05:50:36 CDT by Mao Miller
--- NOTE | 2020-08-17 08:16 | ECHO ---
HEIGHT: 5 ft 9 in WEIGHT: 173 lb 0 oz DATE OF STUDY: 08/16/[address]: Jai Infante NP 2-DIMENSIONAL: YES M.MODE: YES DOPPLER: YES COLOR FLOW: YES TDS: PORTABLE: DEFINITY: BUBBLE STUDY: DIAGNOSIS: CHEST PAIN CARDIAC HISTORY: CATHERIZATION: NO SURGERY: NO PROSTHETIC VALVE: NO PACEMAKER: NO MEASUREMENTS (cm) DIASTOLIC (NORMALS) SYSTOLIC (NORMALS) IVSd 1.1 (0.6-1.2) LA Diam 3.1 (1.9-4.0) LVEF 61% LVIDd 3.3 (3.5-5.7) LVIDs 2.3 (2.0-3.5) %FS 31% LVPWd 1.2 (0.6-1.2) Ao Diam 3.2 (2.0-3.7) 2 DIMENSIONAL ASSESSMENT: RIGHT ATRIUM: NORMAL LEFT ATRIUM: NORMAL RIGHT VENTRICLE: NORMAL LEFT VENTRICLE: NORMAL TRICUSPID VALVE: NORMAL MITRAL VALVE: NORMAL PULMONIC VALVE: NORMAL AORTIC VALVE: NORMAL PERICARDIAL EFFUSION: NONE AORTIC ROOT: NORMAL LEFT VENTRICULAR WALL MOTION: NORMAL DOPPLER/COLOR FLOW: NORMAL COMMENTS: NORMAL 2-DIMENSIONAL ECHOCARDIOGRAM WITH DOPPLER. NO WALL MOTION ABNORMALITY. NO EFFUSION. TECHNOLOGIST: KAYA CLAYTON
--- NOTE | 2020-08-17 08:33 | TREADPHA ---
DX: CHEST PAIN Date of Study: 08/16/2020 Ht: 5' 9 " Wt: 173 lb 0 oz Consulting Physician: KAILASH MEDICATIONS: TYLENOL, ASPIRIN, LIPITOR, LOVENOX, LOPRESSOR HISTORY: 71 YEAR OLD MALE WITH COMPLAINTS OF CHEST PAIN. PHYSICIAL EXAMINATION: RESTING B.P.: 145/85 RESTING H.R.: 53 RESTING EKG: NORMAL PROTOCOL: PHARMACOLOGIC EXERCISE TIME: 3:30 B.P. AT PEAK STRESS: 148/79 IMPRESSION: LEXISCAN INJECTED. CARDIOLITE INJECTED PER PROTOCOL. SEE NUCLEAR MEDICINE REPORT. NO SUPRAVENTRICULAR TACHCYARDIA. NO VENTRICULAR TACHYCARDIA. NO PREMATURE VENTRICULAR COMPLEXES. ONE PREMATURE ATRIAL COMPLEX. DENIED CHEST PAIN.
== END 2020-08-16 17:03 | disposition home or self-care (01) ==
LOC: ER 16:29 → ERHOLD 18:45 → 4TH 20:30
PROVIDERS: ADMIT Hospitalist; ATTEND Hospitalist
DX: R07.89 Other chest pain (principal); N28.9 Disorder of kidney and ureter, unspecified; D51.0 Vitamin B12 deficiency anemia due to intrinsic factor deficiency; I10 Essential (primary) hypertension; E78.5 Hyperlipidemia, unspecified; Z79.82 Long term (current) use of aspirin; Z82.49 Family history of ischemic heart disease and other diseases of the circulatory system
CPT/HCPCS: 96361; 93005; 93017; 93306; 85025 ×2; 80048 ×2; 36415; 83735 ×2; 80061; 80076; 84443; 84484 ×3; 84439; 83690; 83880; 71045; 78452; 96360; 96372; 99285; U0003; J2785; J7030 ×2; A9500; G0378 ×3

== ENCOUNTER 2024-07-21 08:18 | Inpatient (IN) | payer BC, OTHER ==
[2024-07-21] MEDS ORDERED: ONDANSETRON 4 MG/2 ML VIAL ONE (09:21)
--- NOTE | 2024-07-21 09:23 | RAD REPORT ---
EXAM DESCRIPTION: US - Abdomen Exam Limited - 07/21/2024 9:12 am CLINICAL HISTORY: mid abd pain, cholelithiasis COMPARISON: No comparisons FINDINGS: The gallbladder demonstrates small shadowing stones. No pericholecystic fluid or gallbladd er wall thickening. The common bile duct is normal range measuring 5 mm. The liver demonstrates no findings of intrahepatic biliary dilatation. IMPRESSION: Cholelithiasis.
--- NOTE | 2024-07-21 09:27 | RAD REPORT ---
EXAM DESCRIPTION: CT - Abdomen Pelvis Wo Contrast - 07/21/2024 9:19 am CLINICAL HISTORY: Abdominal pain. ABD PAIN COMPARISON: No comparisons TECHNIQUE: CT imaging of the abdomen and pelvis was performed without contrast. Solid organ, bowel a nd vascular assessment is limited due to lack of IV and oral contrast. All CT scans are performed using dose optimization technique as appropriate and may include automated exposure control or mA/KV adjustment according to patient size. FINDINGS: Mild linear atelectasis is seen in both lung bases.Cholelithiasis with mild gallbladder di stention. The liver, spleen, pancreas, adrenal glands and kidneys are within normal limits for a limited non-co ntrast examination. No bowel obstruction, free air, free fluid or abscess. Moderate stool is present throughout the colon . The appendix is normal. Mild superior wedge compression of L2. Grade 1 anterolisthesis of L5 on S1 with bilateral spondylolys is IMPRESSION: Cholelithiasis with mild gallbladder distention. Moderate stool is present throughout the colon with scattered diverticulosis coli. A limited non-contrast examination was performed as detailed.
[2024-07-21 09:42] LABS: Absolute Basophils 0.1 K/uL (0-0.5); Absolute Eosinophils 0.1 K/uL (0-0.5); Absolute Lymphocytes (CBC) 1.5 K/uL (0.7-4.9); Absolute Monocytes 0.5 K/uL (0.1-1.3); Absolute Neutrophil 5.1 K/uL (1.8-8.0); Basophils % 1.2 % (0-1.3); Eosinophils % 1.4 % (0-4.4); Hematocrit 32.1 % (39.6-49.0); Hemoglobin 10.4 g/dL (13.6-17.9); Lymphocytes % 20.6 % (15.3-44.8); MCH 33.5 pg (27.0-35.0); MCHC 32.4 g/dL (32.0-36.0); MCV 103.5 fL (80-100); MPV 8.1 fL (7.6-11.3); Neutrophils % 69.8 % (41.7-73.7); Nucleated Red Blood Cells % 0.2 % (0-0); Platelets 422 thou/uL (152-406); Red Cell Distribution Width 24.8 % (12.1-15.2)
[2024-07-21 09:59] LABS: Albumin/Globulin Ratio 1.2 (1.1-1.8); Anion Gap 7.3 mEq/L (5.0-15.0); Bilirubin Total 1.2 mg/dL (0.2-1.0); Globulin 3.3 g/dL (2.3-3.5); Potassium 4.3 mEq/L (3.5-5.1); Protein, Total 7.3 g/dL (6.4-8.2)
--- NOTE | 2024-07-21 10:31 | ER ---
Nurse's Notes [facility] Name: George Brown Age: 83 yrs Sex: Male : 1940 Arrival Date: 07/21/2024 Time: 08:18 Bed 20 Private MD: Diagnosis: Other cholelithiasis without obstruction-with gallbladder distension Presentation: 07/21 08:37 Chief complaint: Patient states: Nausea, chills, sweats, weakness since Saturday. ll1 States it feels like the time he had gallstones. Coronavirus screen: Client denies travel out of the [place] in the last 14 days. diarrhea, fatigue, nausea, Client presents with at least one sign or symptom that may indicate coronavirus-19. Standard/surgical mask placed on the client. Ebola Screen: Patient denies travel to an Ebola-affected area in the 21 days before illness onset. No acute neurological deficit is noted. Initial Sepsis Screen: Does the patient meet any 2 criteria? No. Patient's initial sepsis screen is negative. Does the patient have a suspected source of infection? No. Patient's initial sepsis screen is negative. Risk Assessment: Do you want to hurt yourself or someone else? Patient reports no desire to harm self or others. Onset of symptoms was July 18, 2024. 08:37 Method Of Arrival: Ambulatory ll1 08:37 Acuity: LEANN 3 ll1 Stroke Activation: Symptom onset > 6 hours Physician: ED Attending; Name: ; Notified At: ; Arrived At: Physician: Mid-Level Provider; Name: ; Notified At: ; Arrived At: Physician: [not used]; Name: ; Notified At: ; Arrived At: Physician: [not used]; Name: ; Notified At: ; Arrived At: Physician: [not used]; Name: ; Notified At: ; Arrived At: Historical: - Allergies: 08:36 No Known Allergies; ll1 - PMHx: 08:36 Anemia; Hypertension; ll1 - PSHx: 08:36 None; ll1 - Immunization history:: Adult Immunizations up to date. - Infectious Disease History:: Denies. - Social history:: Smoking status: Patient denies any tobacco usage or history of. - Family history:: not pertinent. - Hospitalizations: : No recent hospitalization is reported. Screenin:[facility] ED Fall Risk Assessment (Adult) History of falling in the last 3 months, ph including since admission No falls in past 3 months (0 pts) Confusion or Disorientation No (0 pts) Intoxicated or Sedated No (0 pts) Impaired Gait No (0 pts) Mobility Assist Device Used No (0 pt) Altered Elimination No (0 pt) Score/Fall Risk Level 0 - 2 = Low Risk Oriented to surroundings, Maintained a safe environment, Hourly rounding (assess needs \\T\\ fall precautionary measures) done. Abuse screen: Denies threats or abuse. Denies injuries from another. Nutritional screening: No deficits noted. Tuberculosis screening: No symptoms or risk factors identified. Assessment: 09:30 General: Appears in no apparent distress. Behavior is calm, cooperative. Pain: Denies ph pain. Complains of pain in reports prior pain in epigastric area. Neuro: Level of Consciousness is awake, alert, obeys commands, Oriented to person, place, time, situation, Reports weakness in "all over". Cardiovascular: Capillary refill < 3 seconds in bilateral fingers Patient's skin is warm and dry. Respiratory: Airway is patent Respiratory effort is even, unlabored. GI: Reports epigastric pain, nausea. Derm: Skin is pink, warm \\T\\ dry. 13:35 Reassessment: Report faxed to 2nd floor. ph Vital Signs: 08:37 BP 161 / 76; Pulse 57; Resp 18; Temp 97.9; Pulse Ox 96% ; Weight 77.11 kg; Height 5 ft. ll1 9 in. ; Pain 9/10; 10:30 BP 135 / 80; Pulse 52; Resp 16; Pulse Ox 98% on R/A; ph 11:42 BP 134 / 63; Pulse 48; Resp 18; Pulse Ox 98% on R/A; ph 13:30 BP 136 / 78; Pulse 51; Resp 18; Temp 97.5; Pulse Ox 99% ; ph 08:37 Body Mass Index 25.10 (77.11 kg, 175.26 cm) ll1 08:37 Pain Scale: Adult ll1 ED Course: 08:22 Patient arrived in ED. ra3 08:33 Andrew Guerra MD is Attending Physician. rn 08:36 Arm band placed on Patient placed in an exam room, on a stretcher. ll1 08:39 Triage completed. ll1 09:14 US Abdomen Limited In Process Unspecified. EDMS 09:14 Genie Butts, RN is Primary Nurse. ph 09:21 CT Abd/Pelvis - Without Contrast In Process Unspecified. EDMS 09:38 Initial lab(s) drawn, by me, sent to lab. Inserted saline lock: 20 gauge in right cc6 antecubital area, using aseptic technique. Blood collected. Flushed with 10 mL NS. 10:30 Roseann Figueroa MD is Hospitalizing Provider. rn 11:42 Patient has correct armband on for positive identification. Bed in low position. Call ph light in reach. Side rails up X2. Pulse ox on. NIBP on. Door closed. Noise minimized. 11:43 No provider procedures requiring assistance completed. Patient admitted, IV remains in ph place. 12:55 255 CM met with patient and at bedside in the ED exam room. Patient identified by ane name and . Demographic sheet confirmed. states he lives with his Tiny in a home on [place] with an elevator. Prior to admission, patient states he performs ADLs independently and without physical limitations. DME in the household is a shower chair, and patient states he has emu farmer bars in the bathroom. No HH, home oxygen or other medical services at this time. Patient states he has an MPOA in place. states he wishes to return home upon discharge. Tiny states she will transport home when he is discharged. Cm team will continue to follow and coordinate care. Administered Medications: 10:55 Drug: Rocephin IV 1 grams IV at calculated rate once; Given slow IV push per pharmacy ph instructions Route: IV; Rate: calculated rate; Site: right antecubital; 11:30 Follow up: Response: No adverse reaction; IV Status: Completed infusion; IV Intake: 50mlph 11:00 Drug: Ondansetron IVP 4 mg IVP once; over 2 minutes Route: IVP; Site: right antecubital;ph 11:49 Follow up: Response: No adverse reaction ph 11:00 Drug: morphine IVP or IV 2 mg IVP once over 4 mins Route: IVP; Infused Over: 4 mins; ph Site: right antecubital; 11:49 Follow up: Response: No adverse reaction; Pain is decreased; RASS: Alert and Calm (0) ph 11:30 Drug: metroNIDAZOLE IVPB 500 mg 100 ml IVPB at 200 ml/hr once over 30 mins Volume: 100 ph ml; Route: IVPB; Rate: 200 ml/hr; Infused Over: 30 mins; Site: right antecubital; 12:00 Follow up: Response: No adverse reaction; IV Status: Completed infusion; IV Intake: ph 100ml Medication: 11:39 VIS not applicable for this client. ph Intake: 11:30 IV: 50ml; Total: 50ml. ph 12:00 IV: 100ml; Total: 150ml. ph Outcome: 10:30 Decision to Hospitalize by Provider. rn 14:21 Patient left the ED. ll1 14:21 Admitted to Med/surg accompanied by tech, family with patient, with chart, ph 14:21 Condition: good 14:21 Instructed on the need for admit, Signatures: Dispatcher [employer] EDMS Andrew Guerra MD MD rn Hall, Patricia, RN RN ph Lewis, Lynsay, RN RN 1 Christina Young 3 Lauren Ozuna RN RN cc6 Aide Arambula RN RN ane
--- NOTE | 2024-07-21 10:31 | EDPHYS ---
Physician Documentation [facility] Name: George Brown Age: 83 yrs Sex: Male : 1940 Arrival Date: 07/21/2024 Time: 08:18 Bed 20 Private MD: ED Physician Andrew Guerra HPI: 07/21 10:25 This 83 yrs old Male presents to ER via Ambulatory with complaints of Weakness, Nausea rn - chills. 10:25 The patient presents to the emergency department with weakness of the. Onset: The rn symptoms/episode began/occurred this morning. 10:26 The patient presents with abdominal pain in the epigastric area, in the right upper rn quadrant. Onset: The symptoms/episode began/occurred this morning. The symptoms do not radiate. Associated signs and symptoms: Pertinent positives: nausea and vomiting, Pertinent negatives: chest pain, fever, shortness of breath. Modifying factors: The symptoms are alleviated by nothing, the symptoms are aggravated by food. Severity of pain: At its worst the pain was moderate in the emergency department the pain has improved. The patient has experienced similar episodes in the past. Patient reports abdominal pain with nausea. Has happened before. Worse with food. Happening more frequently over the last 3 days. No fever or chills. Has known gallstone problem.. Historical: - Allergies: 08:36 No Known Allergies; ll1 - PMHx: 08:36 Anemia; Hypertension; ll1 - PSHx: 08:36 None; ll1 - Immunization history:: Adult Immunizations up to date. - Infectious Disease History:: Denies. - Social history:: Smoking status: Patient denies any tobacco usage or history of. - Family history:: not pertinent. - Hospitalizations: : No recent hospitalization is reported. ROS: 10:26 Constitutional: Negative for fever, chills, and weight loss, Cardiovascular: Negative rn for chest pain, palpitations, and edema, Respiratory: Negative for shortness of breath, cough, wheezing, and pleuritic chest pain, Abdomen/GI: Positive for abdominal pain with nausea MS/Extremity: Negative for injury and deformity, Skin: Negative for injury, rash, and discoloration, Neuro: Negative for headache, weakness, numbness, tingling, and seizure, Exam: 10:26 Constitutional: This is a well developed, well nourished patient who is awake, alert, rn and in no acute distress. Cardiovascular: Regular rate and rhythm. No pulse deficits. Respiratory: No increased work of breathing, no retractions or nasal flaring. Abdomen/GI: Soft, no focal tenderness Vital Signs: 08:37 BP 161 / 76; Pulse 57; Resp 18; Temp 97.9; Pulse Ox 96% ; Weight 77.11 kg; Height 5 ft. ll1 9 in. ; Pain 9/10; 10:30 BP 135 / 80; Pulse 52; Resp 16; Pulse Ox 98% on R/A; ph 11:42 BP 134 / 63; Pulse 48; Resp 18; Pulse Ox 98% on R/A; ph 13:30 BP 136 / 78; Pulse 51; Resp 18; Temp 97.5; Pulse Ox 99% ; ph 08:37 Body Mass Index 25.10 (77.11 kg, 175.26 cm) ll1 08:37 Pain Scale: Adult ll1 MDM: 08:33 Patient medically screened. rn 10:26 Differential diagnosis: cholecystitis, Cholelithiasis, gastritis, gastroesophageal rn reflux disease, pancreatitis, Peptic Ulcer Disease. Data reviewed: vital signs, nurses notes, lab test result(s), radiologic studies, CT scan, ultrasound, and as a result, I will admit patient. Consideration of Admission/Observation Patient was admitted/placed on observation. Escalation of care including admission/observation considered. Counseling: I had a detailed discussion with the patient and/or guardian regarding the historical points, exam findings, and any diagnostic results supporting the discharge/admit diagnosis, lab results, radiology results, the need for further work-up and treatment in the hospital. Response to treatment: the patient's symptoms have markedly improved after treatment, and as a result, I will admit patient. ED course: Imaging shows cholelithiasis, no gallbladder wall thickening or pericholecystic fluid. No CBD dilatation. Slight elevation in LFTs and are new compared to 2020, imaging shows distention of gallbladder, will admit for further evaluation and workup.. 07/21 08:46 Order name: CBC with Diff; Complete Time: 11:08 rn 07/21 08:46 Order name: CMP; Complete Time: 10: rn 07/21 08:46 Order name: Lipase; Complete Time: 10: rn 07/21 09:46 Order name: CBC Smear Scan; Complete Time: 11:08 EDMS 07/21 13:07 Order name: Vitamin B12 Level EDMS 07/21 13:07 Order name: Miscellaneous Test Lab EDMS 07/21 13:07 Order name: Miscellaneous Test Lab EDMS 07/21 13:08 Order name: Retic Count EDMS 07/21 13:14 Order name: CBC with Automated Diff EDMS 07/21 13:14 Order name: CBC with Automated Diff EDMS 07/21 13:14 Order name: Comprehensive Metabolic Panel EDMS 07/21 13:14 Order name: Comprehensive Metabolic Panel EDMS 07/21 13:14 Order name: Protime (+INR) EDMS 07/21 13:14 Order name: Protime (+INR) EDMS 07/21 13:14 Order name: PTT, Activated Partial Thromb EDMS 07/21 13:14 Order name: PTT, Activated Partial Thromb EDMS 07/21 13:14 Order name: Troponin High Sensitivity EDMS 07/21 13:14 Order name: Troponin High Sensitivity EDMS 07/21 13:14 Order name: Troponin High Sensitivity EDMS 07/21 13:14 Order name: Troponin High Sensitivity EDMS 07/21 08:46 Order name: US Abdomen Limited; Complete Time: 09:33 rn 07/21 08:46 Order name: CT Abd/Pelvis - Without Contrast; Complete Time: 09:33 rn 07/21 13:14 Order name: CONS Physician Consult EDNH 07/21 08:46 Order name: IV Saline Lock; Complete Time: 09:38 rn 07/21 08:46 Order name: Labs collected and sent; Complete Time: 09:38 rn Administered Medications: 10:55 Drug: Rocephin IV 1 grams IV at calculated rate once; Given slow IV push per pharmacy ph instructions Route: IV; Rate: calculated rate; Site: right antecubital; 11:30 Follow up: Response: No adverse reaction; IV Status: Completed infusion; IV Intake: 50mlph 11:00 Drug: Ondansetron IVP 4 mg IVP once; over 2 minutes Route: IVP; Site: right antecubital;ph 11:49 Follow up: Response: No adverse reaction ph 11:00 Drug: morphine IVP or IV 2 mg IVP once over 4 mins Route: IVP; Infused Over: 4 mins; ph Site: right antecubital; 11:49 Follow up: Response: No adverse reaction; Pain is decreased; RASS: Alert and Calm (0) ph 11:30 Drug: metroNIDAZOLE IVPB 500 mg 100 ml IVPB at 200 ml/hr once over 30 mins Volume: 100 ph ml; Route: IVPB; Rate: 200 ml/hr; Infused Over: 30 mins; Site: right antecubital; 12:00 Follow up: Response: No adverse reaction; IV Status: Completed infusion; IV Intake: ph 100ml Disposition Summary: 07/21/24 10:30 Hospitalization Ordered Notes: Hospitalization Status: Observation rn Provider: Roseann Figueroa rn Condition: Stable rn Problem: an ongoing problem rn Symptoms: have improved rn Bed/Room Type: Standard rn Location: Telemetry/MedSurg (observation)(07/21/24 13:23) bd Room Assignment: [facility](07/21/24 13:23) bd Diagnosis - Other cholelithiasis without obstruction - with gallbladder distension rn Forms: - Medication Reconciliation Form rn - SBAR form rn - Leadership Thank You Letter rn Signatures: Dispatcher [employer] EDMS Nelly Snyder Roman, MD MD rn Hall, Patricia, RN RN ph John, Nori, RN RN ll1 Corrections: (The following items were deleted from the chart) 08:47 08:47 CBC+H.LAB.BRZ ordered. EDMS EDMS 08:47 08:47 COMPREHENSIVE METABOLIC PANEL+C.LAB.BRZ ordered. EDMS EDMS 08:47 08:47 LIPASE+C.LAB.BRZ ordered. EDMS EDMS 08:47 08:47 Abdomen Limited+US.RAD.BRZ ordered. EDMS EDMS 08:47 08:47 Abdomen Pelvis Wo Con+CT.RAD.BRZ ordered. EDMS EDMS 12:56 10:30 Telemetry/MedSurg (observation) rn bd 12:56 10:30 rn bd 13:23 12:56 [facility] ER HOLD bd bd 13:23 12:56 ERHOLD- bd bd
[2024-07-21 10:45] LABS: Platelet Estimate ADEQ; White Blood Cell Scan OK (OK)
[2024-07-21 10:46] LABS: Anisocytosis 3+; Blood Morphology Comment NOTED (NOT SEEN); Hypochromasia 2+
[2024-07-21] MEDS ORDERED: PIPERACIL/TAZO 3.375 GM VIAL IV ONE (10:56)
[2024-07-21] MEDS ORDERED: MORPHINE 2 MG/ML SYR ONE (10:56)
[2024-07-21] MEDS ORDERED: CEFTRIAXONE 1000 MG/VIAL ONE (10:56)
[2024-07-21] MEDS ORDERED: NA CHLORIDE 0.9% 0 ML ONE (10:56)
[2024-07-21] MEDS ORDERED: NA CHLORIDE 0.9% 50 ML ONE (10:57)
[2024-07-21] MEDS ORDERED: METRONIDAZOLE 500mg IVPB 500 MG/100 ML BAG IV ONE (10:58)
[2024-07-21] MEDS: POLYETHYL GLY 3350 17 GM/DOSE PO ONE (13:06)
[2024-07-21] MEDS ORDERED: ACETAMINOPHEN 500 MG TAB PO PRN (13:06)
[2024-07-21 14:48] VITALS: BMI 25.1
[2024-07-21] MEDS: NA CHLORIDE 0.9% 1,000 ML IV SCH (16:41)
[2024-07-22 05:48] LABS: Absolute Basophils 0.1 K/uL (0-0.5); Absolute Eosinophils 0.2 K/uL (0-0.5); Absolute Lymphocytes (CBC) 1.8 K/uL (0.7-4.9); Absolute Monocytes 0.5 K/uL (0.1-1.3); Absolute Neutrophil 3.7 K/uL (1.8-8.0); Basophils % 1.4 % (0-1.3); Eosinophils % 3.9 % (0-4.4); Hemoglobin 9.9 g/dL (13.6-17.9); Lymphocytes % 28.3 % (15.3-44.8); MCHC 34.3 g/dL (32.0-36.0); MCV 102.1 fL (80-100); MPV 8.1 fL (7.6-11.3); Monocytes % 7.4 % (3.3-12.3); Nucleated Red Blood Cells % 0.3 % (0-0); Platelets 404 thou/uL (152-406); RBC Red Blood Cell Count 2.84 M/uL (4.33-5.43); Red Cell Distribution Width 24.2 % (12.1-15.2)
[2024-07-22 05:49] LABS: Percent Reticulocyte Count 0.79 % (0.4-2.05); RBC Red Blood Cell Count 2.88 M/uL (4.33-5.43)
[2024-07-22 05:54] LABS: PT Prothrombin Time 12.8 SECONDS (9.4-12.5); PTT, Activated Partial Thromb 30.3 SECONDS (24.3-36.9); Protime INR 1.15
[2024-07-22 06:03] LABS: Albumin 3.5 g/dL (3.4-5.0); Albumin/Globulin Ratio 1.1 (1.1-1.8); Bilirubin Total 0.8 mg/dL (0.2-1.0); Globulin 3.1 g/dL (2.3-3.5); Protein, Total 6.6 g/dL (6.4-8.2); Troponin High Sensitivity 10.5 pg/mL (<58.9)
--- NOTE | 2024-07-22 07:18 | P.PN ---
Date of Service: 07/22/24 Subjective N.p.o. surgery to eval for acute cholecystitis today Pain control as needed analgesia Review of Systems 10-point ROS is otherwise unremarkable Physical Examination - Physical Exam General: Alert, In no apparent distress HEENT: Atraumatic, PERRLA, Mucous membr. moist/pink Neck: Supple, 2+ carotid pulse no bruit, No LAD Respiratory: Clear to auscultation bilaterally, Normal air movement Cardiovascular: Regular rate/rhythm, Normal S1 S2 Gastrointestinal: Normal bowel sounds, right upper quadrant tenderness Musculoskeletal: No tenderness Integumentary: No rashes Neurological: Normal speech, Normal strength at 5/5 x4 extr, Normal tone, Normal affect - Assessment and Plan - Plan Assessment/Plan Acute cholecystitis abdominal pain Nausea vomiting Surgery consult IV fluids, IV antibiotics, as needed analgesics, antiemetic Pending cardiac clearance Renal insufficiency: Trend kidney function Avoid nephrotoxic medication Macrocytic anemia: Trend H&H Transfuse if hemoglobin less than 8 Plan to discharge in: 24 Hours - Advance Directives Does patient have a Living Will: No Does patient have a Durable POA for Healthcare: No - Code Status/Comfort Care Code Status Assessed: Yes Critical Care: No Time Spent Managing Pts Care (In Minutes): 35 <Ashlyn Dow - Last Filed: 07/22/24 12:26> Chart has been reviewed. Events of the last 24 hours have been noted. Case discussed with MARILYN. I performed a substantial part of the MDM during this patient's care today. I personally made or approved the documented management plan and acknowledge its risk of complications. I agree with the findings and documentation provided in the MARILYN's notes Patient will go to the OR with general surgery. Appreciate cardiology clearance. <Roseann Figueroa - Last Filed: 08/13/24 00:12>
--- NOTE | 2024-07-22 11:38 | P.PN ---
Subjective Date of Service: 07/22/24 Chief Complaint: acute cholecystitis Subjective: Ambulating, Improving Review of Systems Respiratory: Unremarkable Cardiovascular: Unremarkable Gastrointestinal: Abdominal Pain (better), Distention Neurological: Unremarkable Physical Examination - Vital Signs Temperature: 97.9 F Blood Pressure: 149/70 Pulse: 56 Respirations: 16 Pulse Ox (%): 97 - Physical Exam General: Alert, In no apparent distress, Oriented x3, Cooperative HEENT: Normocephalic, PERRLA, Sclerae nonicteric Neck: Supple Respiratory: Normal air movement Cardiovascular: Normal pulses Gastrointestinal: No rebound, No guarding, Tenderness (mild RUQ) Musculoskeletal: No erythema, No tenderness, No warmth Integumentary: No rashes, No breakdown, No erythema, No warmth, No cyanosis Neurological: Normal speech Assessment And Plan - Plan Still doing medical work up. Surgical options explained again.
--- NOTE | 2024-07-22 12:17 | CON ---
Date of Consultation: 07/21/2024 This patient was seen by me and Dr. Figueroa in ER at July 21, 2024. Reason For Service: Epigastric right upper quadrant pain. History Of Present Illness: This is the case of a male, who came to us complaining of nausea, chills , weakness since about 3 days prior to admission on Saturday. He had a pain like this before about 3 years ago. He was told he had gallstones and then he assumed maybe that same thing once again. Jose Manuel t is why, he came to the ER, since he was not getting better. He denies any dysuria, hematuria, john tochezia, or melena. He denies any recent traveling out of the country. Denies any family member si ck at home. Past Medical History: Anemia. Hypertension. Past Surgical History: None. Allergies: NONE. Social History: He does not smoke. He does not drink alcohol. Family History: Noncontributory. Review of Systems: See HPI. Nausea, chills, sweat, weakness. Physical Examination: Vital Signs: Reviewed. General: The patient is awake and alert. HEENT: Pupils are equal and reactive. Anicteric. Neck: Supple. Chest: Clear. Heart: S1, S2. Abdomen: Epigastric right upper quadrant tenderness. No guarding or rebound. Rectal: Deferred. Genitalia: Deferred. Extremities: Good capillary refill. Laboratory Data: Blood work shows a WBC count of 7.4, hemoglobin of 10.4, INR of 1.1, potassium 4.3, total bilirubin of 1.2, AST of 128, alkaline phosphate of 82. Ultrasound of the abdomen shows charo lithiasis. CAT scan of the abdomen and pelvis shows cholelithiasis with gallbladder distention. Assessment: This is an 83-year-old patient with epigastric right upper quadrant pain, gallstones, an d gallbladder distention. Differential diagnosis includes symptomatic cholelithiasis and acute charo cystitis. During the workup, I discussed the case with the primary doctor. He wants to also check h is heart to make sure there is no association of that pain to those organs, so we are awaiting then f or the cardiac clearance. If that is clear, then we are going to discuss once again his options and he will have to decide if he want to do the surgery during this admission or not, depends on the clin ical findings in the next few hours. He understand the option of laparoscopic, possible open cholecy stectomy with benefits, alternatives, and risks including, but not limited to, infection, bleeding, d amage to adjacent structures, anesthesia complication, choledocholithiasis, bile leak, pancreatitis, WI, and even . He also understands this may not relieve any symptoms. He might need more than one surgical intervention. He understood. ERIC/ZANDER Voice ID: [id number] Report ID: [id number]
[2024-07-22] MEDS: MORPHINE 2 MG/ML SYR IV PRN (14:36)
[2024-07-22] MEDS: ONDANSETRON 4 MG/2 ML VIAL IV PRN (14:36)
--- NOTE | 2024-07-22 16:22 | P.CNS ---
Date of Consult: 07/22/24 Chief Complaint: acute cholecystitis History of Present Illness: Patient with no significant cardiac history presented with abdominal pain, cardiology was consulted for preoperative clearance, patient is an active person, denies chest pain, no SOB, no palpitations, no syncope. Allergies No Known Allergies Allergy (Verified 03/18/19 15:13) Home medications list reviewed: Yes Home Medications: NK [No Home Meds] 07/21/24 - Past Medical/Surgical History Diabetic: No -: Pernicious anemia -: Skin cancer -: Hernia repair -: Right shoulder surgery -: skin cancer removal Psychosocial/ Personal History: Patient lives at home with his and the oldest son - Family History Father Medical History: Heart disease Brother Medical History: Heart disease Sister Medical History: Heart disease Mother Notes: pernicious anemia - Social History Alcohol use: No CD- Drugs: No Caffeine use: No Place of Residence: Home Review of Systems 10-point ROS is otherwise unremarkable Physical Examination Temp Pulse Resp BP Pulse Ox 97.7 F 57 18 155/69 H 95 07/22/24 12:00 07/22/24 12:07/22/24 14:36 07/22/24 12:00 07/22/24 14:36 General: Alert, In no apparent distress HEENT: Atraumatic, PERRLA, Mucous membr. moist/pink, EOMI, Sclerae nonicteric Neck: Supple, 2+ carotid pulse no bruit, No LAD, Without JVD or thyroid abnormality Respiratory: Clear to auscultation bilaterally, Normal air movement Cardiovascular: Regular rate/rhythm, Normal S1 S2 Gastrointestinal: Normal bowel sounds, No tenderness Musculoskeletal: No tenderness Integumentary: No rashes Neurological: Normal gait, Normal speech, Normal tone, Normal affect Lymphatics: No axilla or inguinal lymphadenopathy - Problems (1) Encounter for pre-operative cardiovascular clearance Current Visit: Yes Status: Acute Plan: Patient is active and can do more than 4 METs without any cardiac symptoms, patient had a stress test and echo in 2019 and both were normal. Patient is cleared as low cardiac risk for MACE, KS or sudden cardiac No further cardiac work up needed prior to surgery.
--- NOTE | 2024-07-22 17:03 | EKG ---
Test Date: 2024-07-17 Test Time: 15:34:32 Creative Manager: JUSTICE MEASUREMENT RESULTS: Intervals: Rate: 81 WY: 168 QRSD: 104 QT: 410 QTc: 476 Duarte: P: 49 WY: 168 QRS: 3 T: 34 INTERPRETIVE STATEMENTS: Normal sinus rhythm Incomplete right bundle branch block Cannot rule out Anterior infarct, age undetermined Abnormal ECG Compared to ECG 08/15/2020 17:06:52 Incomplete right bundle-branch block now present Myocardial infarct finding now present Sinus bradycardia no longer present T-wave abnormality no longer present Electronically Signed On 07-22-24 16:59:38 CDT by Theodore Page
--- NOTE | 2024-07-23 05:56 | P.PN ---
Date of Service: 07/23/24 Subjective N.p.o. surgery to eval for acute cholecystitis today Pain control as needed analgesia Review of Systems 10-point ROS is otherwise unremarkable Physical Examination - Physical Exam General: Alert, In no apparent distress HEENT: Atraumatic, PERRLA, Mucous membr. moist/pink Neck: Supple, 2+ carotid pulse no bruit, No LAD Respiratory: Clear to auscultation bilaterally, Normal air movement Cardiovascular: Regular rate/rhythm, Normal S1 S2 Gastrointestinal: Normal bowel sounds, right upper quadrant tenderness Musculoskeletal: No tenderness Integumentary: No rashes Neurological: Normal speech, Normal strength at 5/5 x4 extr, Normal tone, Normal affect - Assessment and Plan - Plan Assessment/Plan Acute cholecystitis abdominal pain Nausea vomiting Surgery consult IV fluids, IV antibiotics, as needed analgesics, antiemetic Pending cardiac clearance Renal insufficiency: Trend kidney function Avoid nephrotoxic medication Macrocytic anemia: Trend H&H Transfuse if hemoglobin less than 8 Plan to discharge in: 24 Hours - Advance Directives Does patient have a Living Will: No Does patient have a Durable POA for Healthcare: No - Code Status/Comfort Care Code Status Assessed: Yes Critical Care: No Time Spent Managing Pts Care (In Minutes): 35
--- NOTE | 2024-07-23 06:00 | P.DS ---
Admission Date: 07/21/24 Discharge Date: 07/23/24 Reason for Admission: acute cholecystitis Brief History of Present Illness: 83 year old male presented with abdominal pain. He reported associated nausea, vomiting. He reports symptoms started 3 days ago, worse with p.o. intake. CT of the abdomen rule reveals acute cholecystitis. He was evaluated by cardiology for cardiology clearance, he was evaluated by surgery for acute cholecystitis. - Physical Exam General: Alert, In no apparent distress HEENT: Atraumatic, PERRLA, Mucous membr. moist/pink Neck: Supple, 2+ carotid pulse no bruit, No LAD Respiratory: Clear to auscultation bilaterally, Normal air movement Cardiovascular: Regular rate/rhythm, Normal S1 S2 Gastrointestinal: Normal bowel sounds, right upper quadrant tenderness Musculoskeletal: No tenderness Integumentary: No rashes Neurological: Normal speech, Normal strength at 5/5 x4 extr, Normal tone, Normal affect Hospital Course: 83 year old male presented with abdominal pain. He reported associated nausea, vomiting. He reports symptoms started 3 days ago, worse with p.o. intake. CT of the abdomen rule reveals acute cholecystitis. He was evaluated by cardiology for cardiology clearance, he was evaluated by surgery for acute cholecystitis. Status post cholecystectomy, tolerating diet, stable to discharge home, follow- up with surgery after discharge. Discharge medication Augmentin 1 p.o. twice daily x 7 days #14 [place] 10 1 tablet every 6 hours as needed for pain #10 Zofran for nausea 1 p.o. every 6 hours as needed, #20 Follow-up with surgery in 1 week evaluated by surgery for acute cholecystitis. Status post cholecystectomy, Follow-up with surgery after discharge Discharge on p.o. antibiotics, take as instructed until gone As needed analgesics, no driving or operating heavy equipment while taking narcotic May need to take stool softeners for constipation, Continue home medicines as previously prescribed GOAL: Clear understanding of disease process INSTRUCTIONS: Physician Discharge Instructions: -Follow-up with PCP in 1 to 2 weeks -Please call Dr. Figueroa at [phone] if any questions regarding hospital stay -Please call nursing station at [phone] if any nursing or medication questions -Return to the emergency room if symptoms worsen Diet: ADA, low sodium Activity: Fall precautions <Ashlyn Dow - Last Filed: 07/23/24 14:14> Admission Date: 07/21/24 Discharge Date: 07/23/24 - Problems (1) Cholecystitis Status: Acute (2) Pernicious anemia Status: Acute (3) Skin cancer Status: Acute (4) Cholelithiasis Status: Acute Qualifiers: Cholelithiasis location: gallbladder Cholecystitis presence: with cholecystitis Cholecystitis acuity: acute Biliary obstruction: without biliary obstruction Qualified Code(s): K80.00 - Calculus of gallbladder with acute cholecystitis without obstruction Hospital Course: Chart has been reviewed. Events of the last 24 hours have been noted. Case discussed with MARILYN. I performed a substantial part of the MDM during this patient's care today. I personally made or approved the documented management plan and acknowledge its risk of complications. I agree with the findings and documentation provided in the MARILYN's notes Patient status post laparoscopic cholecystectomy. Patient is clinically doing well. Plan to discharge in a.m. <Roseann Figueroa - Last Filed: 08/13/24 00:18> Disposition: ROUTINE DISCHARGE Discharge Condition: GOOD Vital Signs/Physical Exam: Temp Pulse Resp BP Pulse Ox 97.5 F 60 16 148/70 H 98 07/23/24 04:00 07/23/24 04:00 07/23/24 04:00 07/23/24 04:00 07/23/24 04:00 Laboratory Data at Discharge: WBC 6.30 thou/uL (4.3-10.9) 07/22/24 05:21 Hgb 9.9 g/dL (13.6-17.9) L 07/22/24 05:21 Hct 29.0 % (39.6-49.0) L 07/22/24 05:21 Plt Count 404 thou/uL (152-406) 07/22/24 05:21 PT 12.8 SECONDS (9.4-12.5) H 07/22/24 05:21 INR 1.15 07/22/24 05:21 APTT 30.3 SECONDS (24.3-36.9) 07/22/24 05:21 Sodium 140 mEq/L (136-145) 07/22/24 05:21 Potassium 4.0 mEq/L (3.5-5.1) 07/22/24 05:21 BUN 16 mg/dL (7-18) 07/22/24 05:21 Creatinine 1.04 mg/dL (0.70-1.30) 07/22/24 05:21 Glucose 97 mg/dL (74-106) 07/22/24 05:21 Total Bilirubin 0.8 mg/dL (0.2-1.0) 07/22/24 05:21 AST 55 U/L (15-37) H 07/22/24 05:21 ALT 84 U/L (16-61) H 07/22/24 05:21 Alkaline Phosphatase 67 U/L (45-117) 07/22/24 05:21 Lipase 27 U/L (13-75) 07/21/24 09:35 <Ashlyn Dow - Last Filed: 07/23/24 14:14> Vital Signs/Physical Exam: Temp Pulse Resp BP Pulse Ox 97.1 F 52 16 154/72 H 95 08/13/24 00:09 08/13/24 00:09 08/13/24 00:09 08/13/24 00:09 08/13/24 00:09 General: Alert, In no apparent distress, Oriented x3 Laboratory Data at Discharge: WBC 5.90 thou/uL (4.3-10.9) 07/23/24 06:13 Hgb 10.1 g/dL (13.6-17.9) L 07/23/24 06:13 Hct 30.8 % (39.6-49.0) L 07/23/24 06:13 Plt Count 374 thou/uL (152-406) 07/23/24 06:13 PT 12.8 SECONDS (9.4-12.5) H 07/22/24 05:21 INR 1.15 07/22/24 05:21 APTT 30.3 SECONDS (24.3-36.9) 07/22/24 05:21 Sodium 139 mEq/L (136-145) 07/23/24 06:13 Potassium 3.9 mEq/L (3.5-5.1) 07/23/24 06:13 BUN 13 mg/dL (7-18) 07/23/24 06:13 Creatinine 1.00 mg/dL (0.70-1.30) 07/23/24 06:13 Glucose 100 mg/dL (74-106) 07/23/24 06:13 Magnesium 2.3 mg/dL (1.6-2.4) 07/23/24 06:13 Total Bilirubin 0.8 mg/dL (0.2-1.0) 07/23/24 06:13 AST 34 U/L (15-37) 07/23/24 06:13 ALT 60 U/L (16-61) 07/23/24 06:13 Alkaline Phosphatase 56 U/L (45-117) 07/23/24 06:13 Lipase 27 U/L (13-75) 07/21/24 09:35 <Roseann Figueroa - Last Filed: 08/13/24 00:18> Diet: AHA Activity: Fall precautions Time spent managing pt's care (in minutes): 55 <Ashlyn Dow - Last Filed: 07/23/24 14:14> Time spent managing pt's care (in minutes): 30 <Roseann Figueroa - Last Filed: 08/13/24 00:18> Home Medications: Hydrocodone 7.5/APAP 325 [[place] 7.5/325 mg] 1 tab PO Q6H PRN #20 tab 07/23/24 Ondansetron [Zofran] 4 mg PO Q6H PRN #20 tab 07/23/24 Codeine/APAP [Tylenol W/Codeine #3 tab] 1 tab PO Q6HP PRN #1 tab 08/05/24 New Medications: Hydrocodone 7.5/APAP 325 [[place] 7.5/325 mg] 1 tab PO Q6H PRN #20 tab PRN Reason: Pain Ondansetron [Zofran] 4 mg PO Q6H PRN #20 tab PRN Reason: Nausea / Vomiting Physician Discharge Instructions: 83 year old male presented with abdominal pain. He reported associated nausea, vomiting. He reports symptoms started 3 days ago, worse with p.o. intake. CT of the abdomen rule reveals acute cholecystitis. Patient was given IV antibiotics. Patient was post to get laparoscopic cholecystectomy; however, patient was not able to get this done because of issues in the OR. Dr. Lopez will follow-up with the patient as an outpatient and perform outpatient laparoscopic cholecystectomy. Evaluated by surgery for acute cholecystitis. Follow-up with surgery, Dr. Lopez, after discharge Discharge on p.o. antibiotics, take as instructed until gone As needed analgesics, no driving or operating heavy equipment while taking narcotic May need to take stool softeners for constipation, Continue home medicines as previously prescribed GOAL: Clear understanding of disease process INSTRUCTIONS: Physician Discharge Instructions: -Follow-up with PCP in 1 to 2 weeks -Please call Dr. Figueroa at [phone] if any questions regarding hospital stay -Please call nursing station at [phone] if any nursing or medication questions -Return to the emergency room if symptoms worsen Diet: ADA, low sodium Activity: Fall precautions Followup: Nikko Lopez MD [ACTIVE - CAN ADMIT] - 1-2 Weeks Nitin Onofre DO [Primary Care Provider] -
[2024-07-23 06:49] LABS: Absolute Basophils 0.2 K/uL (0-0.5); Absolute Eosinophils 0.2 K/uL (0-0.5); Absolute Lymphocytes (CBC) 1.7 K/uL (0.7-4.9); Absolute Monocytes 0.4 K/uL (0.1-1.3); Absolute Neutrophil 3.4 K/uL (1.8-8.0); Basophils % 2.9 % (0-1.3); Eosinophils % 3.5 % (0-4.4); Hematocrit 30.8 % (39.6-49.0); Hemoglobin 10.1 g/dL (13.6-17.9); Lymphocytes % 28.4 % (15.3-44.8); MCH 33.8 pg (27.0-35.0); MCHC 32.6 g/dL (32.0-36.0); MCV 103.7 fL (80-100); MPV 8.6 fL (7.6-11.3); Neutrophils % 58.2 % (41.7-73.7); Nucleated Red Blood Cells % 0.1 % (0-0); Platelets 374 thou/uL (152-406); RBC Red Blood Cell Count 2.97 M/uL (4.33-5.43); Red Cell Distribution Width 25.2 % (12.1-15.2)
[2024-07-23 06:51] LABS: Albumin 3.6 g/dL (3.4-5.0); Albumin/Globulin Ratio 1.2 (1.1-1.8); Anion Gap 8.9 mEq/L (5.0-15.0); Bilirubin Total 0.8 mg/dL (0.2-1.0); Globulin 3.1 g/dL (2.3-3.5); Magnesium 2.3 mg/dL (1.6-2.4); Potassium 3.9 mEq/L (3.5-5.1); Protein, Total 6.7 g/dL (6.4-8.2)
[2024-07-23 08:39] VITALS: BP 154/72; TEMP 97.1
[2024-07-23 09:50] VITALS: O2SAT 97
[2024-07-23] MEDS: PIPER TAZO 3.375 GM in NA CHLORIDE 0.9% 100 ML IV SCH (11:10)
--- NOTE | 2024-07-23 17:54 | PN ---
Date of Progress Note: 07/23/2024 Reason For Service: Cholecystitis, symptomatic cholelithiasis. This is a case of an 83-year-old patient who comes to us with above diagnoses, had to have to go thro ugh a cardia workup. Finally, he was cleared for surgery today. He is right now feeling better. No nausea, no vomiting. Abdominal pain subsided. On the process of trying to do surgery, we were noti fied by the institution that the OR is not available at this moment. They have some technical diffic ulties and mechanical problems, that they cannot allow this case to go at this moment. They are not sure if it is going to be available tonight or tomorrow, so I discussed with the patient his conditio n, the current situation, and since he has no pain at this moment, he is tolerating diet, he preferre d to go home and do this electively and at this moment I discussed this with the primary doctor. I jin gaytan this is the route and is an option. So, he wants to go home. He will be discharged. Follow up in my office this Saturday. Low-fat diet. HM/MODL Voice ID: [id number] Report ID: [id number]
--- NOTE | 2024-07-24 13:36 | EKG ---
Test Date: 2024-07-22 Test Time: 09:42:56 Zinc Chloride Operator: TIGRE MEASUREMENT RESULTS: Intervals: Rate: 52 MD: 180 QRSD: 78 QT: 468 QTc: 435 [place]: P: 55 MD: 180 QRS: 0 T: 42 INTERPRETIVE STATEMENTS: Sinus bradycardia Otherwise normal ECG Compared to ECG 07/17/2024 15:34:32 Sinus rhythm no longer present Incomplete right bundle-branch block no longer present Myocardial infarct finding no longer present Electronically Signed On 07-24-24 13:30:16 CDT by Theodore Page
--- NOTE | 2024-08-12 23:59 | P.HP ---
Certification for Inpatient Patient admitted to: Inpatient With expected LOS: >2 Midnights Patient will require the following post-hospital care: None Practitioner: I am a practitioner with admitting privileges, knowledge of patient current condition, hospital course, and medical plan of care. Services: Services provided to patient in accordance with Admission requirements found in Title 42 Section 412.3 of the Code of Federal Regulations Patient History Date of Service: 07/21/24 Reason for admission: Acute cholecystitis History of Present Illness: Pt is an 83 year old male presented with abdominal pain. He reported associated nausea, vomiting. He reports symptoms started 3 days ago, worse with p.o. intake. Patient is also had generalized weakness. He has a history of gallstones. In the emergency room patient had extensive workup including CT scan.CT of the abdomen rule reveals acute cholecystitis. At this time, patient will be admitted to the hospital with general surgery consultation. Will also get cardiology consultation for cardiac clearance. Allergies No Known Allergies Allergy (Verified 03/18/19 15:13) Home Medications: Hydrocodone 7.5/APAP 325 [[place] 7.5/325 mg] 1 tab PO Q6H PRN #20 tab 07/23/24 Ondansetron [Zofran] 4 mg PO Q6H PRN #20 tab 07/23/24 Codeine/APAP [Tylenol W/Codeine #3 tab] 1 tab PO Q6HP PRN #1 tab 08/05/24 - Past Medical/Surgical History Has patient received pneumonia vaccine in the past: No Diabetic: No -: Pernicious anemia -: Skin cancer -: Hernia repair -: Right shoulder surgery -: skin cancer removal Psychosocial/ Personal History: Patient lives at home with his and the oldest son - Family History Father Medical History: Heart disease Brother Medical History: Heart disease Sister Medical History: Heart disease Mother Notes: pernicious anemia - Social History Smoking Status: Former smoker Alcohol use: No CD- Drugs: No Caffeine use: No Place of Residence: Home Review of Systems 10-point ROS is otherwise unremarkable Physical Examination - Vital Signs Temperature: 97.1 F Blood Pressure: 154/72 Pulse: 52 Respirations: 16 Pulse Ox (%): 95 - Physical Exam General: Alert, In no apparent distress, Oriented x3 HEENT: Atraumatic, PERRLA, Mucous membr. moist/pink, EOMI, Sclerae nonicteric Neck: Supple, 2+ carotid pulse no bruit, No LAD, Without JVD or thyroid abnormality Respiratory: Clear to auscultation bilaterally, Normal air movement Cardiovascular: Regular rate/rhythm, Normal S1 S2 Gastrointestinal: Normal bowel sounds, Soft and benign, Non-distended, No rebound, No guarding, Tenderness Musculoskeletal: No clubbing, No swelling, No tenderness Integumentary: No rashes Neurological: Normal gait, Normal speech, Normal strength at 5/5 x4 extr, Normal tone, Sensation intact, Cranial nerves 3-12 intact, Normal affect Lymphatics: No axilla or inguinal lymphadenopathy Assessment & Plan - Problems (Diagnosis) (1) Cholecystitis Status: Acute (2) Pernicious anemia Status: Acute (3) Skin cancer Status: Acute (4) Cholelithiasis Status: Acute Qualifiers: Cholelithiasis location: gallbladder Cholecystitis presence: with cholecystitis Cholecystitis acuity: acute Biliary obstruction: without biliary obstruction Qualified Code(s): K80.00 - Calculus of gallbladder with acute cholecystitis without obstruction - Plan -IV hydration -IV antibiotics -Surgery consultation -pain controlled -Cardiology consultation for cardiac clearance -CT abdomen pelvis pending Discharge Plan: Home Plan to discharge in: Greater than 2 days - Advance Directives Does patient have a Living Will: No Does patient have a Durable POA for Healthcare: No - Code Status/Comfort Care Code Status Assessed: Yes Code Status: Full Code Critical Care: No Time Spent Managing PTS Care (In Minutes): 45
== END 2024-07-23 16:32 | disposition home or self-care (01) | DRG 446 ==
LOC: ER 08:18 → ERHOLD 13:06 → 2ND 13:37
PROVIDERS: ADMIT Hospitalist; ATTEND Hospitalist
PROC: 30233N1 Transfusion of Nonautologous Red Blood Cells into Peripheral Vein, Percutaneous Approach (ICD-10-PCS; principal; 2024-07-23)
DX: K80.00 Calculus of gallbladder with acute cholecystitis without obstruction (principal); I10 Essential (primary) hypertension; D53.9 Nutritional anemia, unspecified; Z79.899 Other long term (current) drug therapy; Z85.828 Personal history of other malignant neoplasm of skin
CPT/HCPCS: 36415; 74176; 76705; 80053; 82607; 83690; 83735; 84484; 85025; 85044; 85610; 85730; 86850; 86900; 86901; 86920; 93005; 96365; 96367; 96375; 99285; J0696; J2270; J2405; J2543; J7030

== ENCOUNTER → 2024-08-05 | Day surgery (SDC) | payer OTHER ==
[~2024-08-05] MED LIST: EPHEDRINE SULF 50 MG/ML VIAL ONE; FENTANYL CITR 100 MCG/2 ML ONE; GLYCOPYRROLATE 0.2 MG/ML SYR ONE; KETOROLAC 30 MG/ML INJ ONE; LIDOCAINE 1% MPF 5 ML VIAL ONE; NEOSTIGMINE 1 MG/ML -10 ML VIAL ONE; ONDANSETRON 4 MG/2 ML VIAL ONE; ROCURONIUM 50 MG/5 ML VIAL IV ONE; SUCCINYLCHOLINE 20 MG/ML (10 ML) IV ONE; propofoL 200 MG/20 ML VIAL IV ONE
[2024-08-05 06:43] LABS: Albumin 4.3 g/dL (3.4-5.0); Albumin/Globulin Ratio 1.2 (1.1-1.8); Bilirubin Direct 0.3 mg/dL (0-0.2); Bilirubin Indirect, Calculated 0.8 mg/dL (0.2-0.8); Bilirubin Total 1.1 mg/dL (0.2-1.0); Globulin 3.7 g/dL (2.3-3.5)
[2024-08-05] MEDS: Ringers Lactate 1,000 ML IV ONE (07:15)
[2024-08-05] MEDS: CEFOXITIN SODIUM 1 GM/VIAL ONE (08:30)
--- NOTE | 2024-08-05 09:13 | P.BOP ---
Preoperative diagnosis: acute cholecystitis, symptomatic cholelithiasis Postoperative diagnosis: same Primary procedure: Laparoscopic cholecystectomy Estimated blood loss: <10cc Specimen: gb Findings: as above Anesthesia: General Complications: None Transferred to: Recovery Room Condition: Good
[2024-08-05 09:50] VITALS: O2SAT 99
[2024-08-05 10:58] VITALS: BP 154/69; TEMP 97.1
--- NOTE | 2024-08-05 11:57 | OP ---
Date of Procedure: 08/05/2024 Surgeon: Nikko Lopez MD Preoperative Diagnoses: Acute cholecystitis, symptomatic cholelithiasis. Postoperative Diagnoses: Acute cholecystitis, symptomatic cholelithiasis. Procedure: Laparoscopic cholecystectomy. Estimated Blood Loss: Less than 10 cc. Specimen: Gallbladder. Anesthesia: General plus local. Indications: This is a case of an 83-year-old patient who comes to us with above diagnoses. Fully e xplained the benefits, alternatives, and risks of laparoscopic, possible open cholecystectomy, which include, but not limited to infection, bleeding, damage to adjacent structures, anesthesia complicati on, recurrence, ME, and even . He also understands this may not relieve the symptoms. He might need more than 1 surgical intervention. He understood, signed a consent. Description Of Procedure: The patient was brought to the operating room, placed in supine position. Anesthesia was done without complication. Abdominal area was prepped and draped in usual sterile fa shion. Marcaine 0.5% was injected for local anesthetic followed by sharp incision of the skin in the infraumbilical region. Incision was carried down to fascia, which was opened under direct vision. Peritoneum was encountered, opened under direct vision. Vicryl #1 was placed inside of the fascia. Ghassan trocar was carefully introduced. Pneumoperitoneum was obtained. I placed 3 more trocars, 5 m m each one of them, 1 in the epigastric area, 2 in the right upper quadrant using same technique, whi ch consisted of local anesthetic. Sharp incision of the skin and introduction of the trocars under d irect vision. This allowed me to put a grasper in the fundus of the gallbladder, another grasper in infundibulum. Retracted the gallbladder in the inferolateral fashion exposing the triangle of Calot, obtaining critical view. Cystic duct and cystic artery were clearly isolated, freed circumferential ly, and a connection between those and the gallbladder were clearly identified. I proceeded to ligat e those by using at least 3 clips proximal, 1 clip distal, ligation in middle. Same was done with th e cystic artery. The gallbladder was removed from the liver using Bovie cauterizer and removed from abdominal cavity using an EndoCatch through the umbilical incision. The area was inspected once agai n. No bile leak, no bleeding. At that moment, I proceeded to remove the trocars under direct vision . Deflated the pneumoperitoneum. Closed the fascia with #1 Vicryl. Irrigated subcutaneous tissue, closed with 3-0 chromic, and the skin in a subcuticular fashion with 3-0 chromic and Steri-Strips on top. Sponge count and instrument counts were correct. The patient tolerated the procedure well. Th e patient was sent to recovery in stable condition. ERIC/ZANDER Voice ID: [id number] Report ID: [id number]
--- NOTE | 2024-08-06 07:58 | DS ---
Diagnoses: Acute cholecystitis, symptomatic cholelithiasis. Procedure: Laparoscopic cholecystectomy. Condition: Stable. Disposition: Home. Activity: As tolerated. No heavy lifting. Discharge Instructions: Follow up in my office in 1 week. Call for appointment [phone]. Keep area d ry for 48 hours, then may shower. Keep Steri-Strips intact. ERIC/ZANDER Voice ID: [id number] Report ID: [id number]
== END | disposition home or self-care (01) ==
LOC: PRE 05:57
PROVIDERS: ATTEND Surgery
PROC: 0FT44ZZ Resection of Gallbladder, Percutaneous Endoscopic Approach (ICD-10-PCS; principal; 2024-08-05 08:30)
DX: K80.10 Calculus of gallbladder with chronic cholecystitis without obstruction (principal); D64.9 Anemia, unspecified
CPT/HCPCS: 36415; 80076; 83690; 88304; J0694; J2001; J2405; J2704; J2710; J3010; J7120